=== PATIENT | female | born 1960 | race Caucasian/White ===

== ENCOUNTER → 2016-05-25 | Outpatient (CLI) | payer BC ==
--- NOTE | 2016-05-28 10:39 | MM ---
Reason for exam: screening (asymptomatic). Last mammogram was performed 2 years and 5 months ago. History: Patient is postmenopausal and had first child at age 33. Physical Findings: A clinical breast exam by your physician is recommended on an annual basis and results should be correlated with mammographic findings. MG 3D Screening Mammo W/Cad Bilateral CC and MLO view(s) were taken. Prior study comparison: December 24, 2013, bilateral MG screening mammo w CAD. July 31, 2011, bilateral digital screening mammo w/CAD. The breast tissue is heterogeneously dense. This may lower the sensitivity of mammography. There is no discrete abnormality. ASSESSMENT: Negative, BI-RAD 1 RECOMMENDATION: Routine screening mammogram of both breasts in 1 year.
== END | disposition home or self-care (01) ==
LOC: RADMAMWWP 07:13
PROVIDERS: ATTEND Internal Medicine
DX: Z12.31 Encounter for screening mammogram for malignant neoplasm of breast (principal)
CPT/HCPCS: 77063; G0202

== ENCOUNTER → 2016-07-18 | Outpatient (CLI) | payer BC ==
--- NOTE | 2016-07-18 15:46 | XR ---
EXAMINATION TYPE: XR foot complete RT DATE OF EXAM: 07/18/2016 3:41 PM COMPARISON: NONE HISTORY: Right foot pain TECHNIQUE: 3 views right foot FINDINGS: There is hallux valgus deformity with prominence of the first metatarsophalangeal joint spa ce. No acute fractures are evident. Soft tissues appear normal. IMPRESSION: 1. Hallux valgus deformity first digit
== END | disposition home or self-care (01) ==
LOC: RADXRMAIN 15:27
PROVIDERS: ATTEND Internal Medicine
DX: M20.11 Hallux valgus (acquired), right foot (principal)

== ENCOUNTER → 2016-11-01 | Outpatient (CLI) | payer BC ==
--- NOTE | 2016-11-01 17:19 | XR ---
EXAMINATION TYPE: XR hand complete RT DATE OF EXAM: 11/01/2016 COMPARISON: NONE HISTORY: Cellulitis TECHNIQUE: 3 views FINDINGS: There is a plate fixing the distal radius. There is deformity of the distal ulna. I see no acute fracture nor dislocation. Metacarpals are intact. IMPRESSION: No acute abnormality of the right hand. No sign of osteomyelitis.
== END | disposition home or self-care (01) ==
LOC: RADXRMAIN 16:48
PROVIDERS: ATTEND Internal Medicine
DX: L03.011 Cellulitis of right finger (principal)

== ENCOUNTER → 2017-02-01 | Outpatient (CLI) | payer BC ==
[2017-02-01 17:25] LABS: Anisocytosis Slight; Basophils % (A) 0 %; CH 28.7; CHCM 31.2; Eosinophils # (A) 0.1 k/uL (0-0.7); Eosinophils % (A) 2 %; HCT 38.1 % (34.0-46.0); HDW 2.51; HGB 12.1 gm/dL (11.4-16.0); Hypochromasia Slight; Luc % (Auto) 2; Lymphocytes # (A) 1.5 k/uL (1.0-4.8); Lymphocytes % (A) 22 %; MCH 29.2 pg (25.0-35.0); MCHC 31.7 g/dL (31.0-37.0); MCV 92.3 fL (80.0-100.0); Mean Platelet Volume 7.1; Monocytes # (A) 0.3 k/uL (0-1.0); Monocytes % (A) 4 %; Neutrophils # (A) 4.8 k/uL (1.3-7.7); Neutrophils % (A) 71 %; RBC 4.13 m/uL (3.80-5.40); RDW 17.5 % (11.5-15.5); WBC 6.9 k/uL (3.8-10.6); WBC (Perox) 7.22
[2017-02-01 17:42] LABS: Anion Gap 8 mmol/L; Blood Urea Nitrogen 15 mg/dL (7-17); Carbon Dioxide 30 mmol/L (22-30); Chloride 103 mmol/L (98-107); Glucose 80 mg/dL (74-99); Potassium 3.2 mmol/L (3.5-5.1); Sodium 141 mmol/L (137-145)
[2017-02-01 17:43] LABS: ALT 34 U/L (9-52); AST 25 U/L (14-36); C Reactive Protein <5.0 mg/L (<10.0); Calcium 9.1 mg/dL (8.4-10.2); Non-African American GFR(MDRD) >60 (>60 ml/min/1.73 sqM)
[2017-02-01 19:29] LABS: Erythrocyte Sedimentation Rate 8 mm/hr (0-20)
== END | disposition home or self-care (01) ==
LOC: LABWHC1 17:05
PROVIDERS: ATTEND Internal Medicine Rheumatology
DX: M34.9 Systemic sclerosis, unspecified (principal)
CPT/HCPCS: 36415; 80048; 84450; 84460; 85025; 85652; 86140

== ENCOUNTER → 2017-08-02 | Outpatient (CLI) | payer BC ==
--- NOTE | 2017-08-02 14:57 | US ---
EXAMINATION TYPE: US venous doppler duplex LE DATE OF EXAM: 08/02/2017 12:55 PM COMPARISON: NONE CLINICAL HISTORY: M79.604 Pain right leg, M79.605 Pain left leg. Surgery to lengthen toes on left viky t 06/06/17. Infection/wound 2nd and 4th left toe LOWER EXTREMITY VENOUS INSUFFICIENCY SIDE PERFORMED: bilateral 1) Color flow is present and patency is documented in the following vessels. No DVT or SVT is noted . EIV Common Femoral Vein Deep Femoral Vein Femoral Vein Popliteal Vein Proximal Calf Veins Greater Saph Vein Upper Small Saph Vein 2) There is venous reflux noted at the following venous levels: right EIV, right CFV, right femoral vein upper mid and distal, right small saph vein, right popliteal vein upper mid and distal. Left EI V, left greater saph vein, left CFV, left femoral vein upper mid and distal, left popliteal vein uppe r mid and distal IMPRESSION: Lower extremity venous reflux as described
--- NOTE | 2017-08-06 10:28 | P.ARTDOP ---
Arterial Doppler LOWER EXTREMITY ARTERIAL DOPPLER: DATE OF SERVICE: 08/02/2017 Reason for study: Surgical dehiscence left foot. Doppler waveforms: Multiphasic bilaterally throughout. Pulse volume recording: Normal configuration to ankle level. Digital PPG have poor waveforms. Pressure gradients: None. Ankle-brachial indices: Greater than 1 bilaterally. Toe pressures: [] on the right, [] on the left Impression: Normal study at the ankle and above. Digital waveforms poor which could be a sign of vasospastic phenomenon or less likely very distal disease. Clinical correlation recommended.
== END | disposition home or self-care (01) ==
LOC: RADUSWWP 11:50
PROVIDERS: ATTEND Family Medicine
DX: I87.2 Venous insufficiency (chronic) (peripheral) (principal)
CPT/HCPCS: 93923; 93970

== ENCOUNTER → 2017-10-03 | Outpatient (CLI) | payer BC ==
--- NOTE | 2017-10-03 13:27 | BD ---
EXAMINATION TYPE: Axial Bone Density DATE OF EXAM: 10/03/2017 COMPARISON: 09/19/2010 CLINICAL HISTORY: Postmenopausal female. Osteoporosis screening. Height: 64 IN Weight: 120 LBS FRAX RISK QUESTIONS: Secondary Osteoporosis: 3. Menopause before 45: YES AGE 41 RISK FACTORS HISTORY OF: History of Wrist Fracture: RT WRIST When: AGE 27 Surgery to Wrist (right): YES RT When: AGE 27 Active: YES Diet low in dairy products/other sources of calcium: YES Postmenopausal woman: AGE 41 MEDICATIONS: Additional Medications: VIT D, METHOTREXATE ONCE PER WEEK, BLOOD PRESSURE MEDS, FOLIC ACID, OMEPRAZOL E, EXAM MEASUREMENTS: Bone mineral densitometry was performed using the [employer] System. Bone mineral density as measured about the Lumbar spine is: ----- L1-L4(G/cm2): 1.014 T Score Values are as follows: ----- L2: -1.7 ----- L3: -1.3 ----- L4: -1.6 ----- L1-L4: -1.4 Bone mineral density has: Decreased -3.3% since study of: 09/19/2010 Bone mineral density about the R hip (g/cm2): 0.769 Bone mineral density about the L hip (g/cm2): 0.783 T Score values are as follows: -----R Neck: -1.9 -----L Neck: -1.8 -----R Total: -1.4 -----L Total: -1.4 Bone mineral density has: Decreased -1.7% since study of: 09/19/2010 IMPRESSION: Osteopenia (T Score between -2.5 and -1). There is slightly increased risk of fracture and the patient may be considered for treatment. Re-Screen 2-5 years. NOTE: T-SCORE=SD OF THE YOUNG ADULT MEAN.
== END | disposition home or self-care (01) ==
LOC: RADBDWWP 07:22
PROVIDERS: ATTEND Internal Medicine
DX: M85.80 Other specified disorders of bone density and structure, unspecified site (principal)
CPT/HCPCS: 77080

== ENCOUNTER → 2017-11-18 | Outpatient (CLI) | payer BC ==
--- NOTE | 2017-11-19 07:38 | MM ---
Reason for exam: screening (asymptomatic). Last mammogram was performed 1 year and 6 months ago. History: Patient is postmenopausal and had first child at age 33. Physical Findings: A clinical breast exam by your physician is recommended on an annual basis and results should be correlated with mammographic findings. MG 3D Screening Mammo W/Cad Bilateral CC and MLO view(s) were taken. Prior study comparison: May 25, 2016, bilateral MG 3d screening mammo w/cad. December 24, 2013, bilateral MG screening mammo w CAD. The breast tissue is heterogeneously dense. This may lower the sensitivity of mammography. No significant changes when compared with prior studies. ASSESSMENT: Negative, BI-RAD 1 RECOMMENDATION: Routine screening mammogram of both breasts in 1 year.
== END | disposition home or self-care (01) ==
LOC: RADMAMWWP 06:59
PROVIDERS: ATTEND Obstetrics & Gynecology
DX: Z12.31 Encounter for screening mammogram for malignant neoplasm of breast (principal)
CPT/HCPCS: 77063; 77067

== ENCOUNTER 2018-03-17 16:41 | Emergency (ER) | payer BC ==
[2018-03-17 16:47] VITALS: RESP 16
--- NOTE | 2018-03-17 17:47 | ED ---
General Adult HPI - General Chief complaint: Back Pain/Injury Stated complaint: Back pain hurts to breathe Time Seen by Provider: 03/17/18 17:09 Source: patient, RN notes reviewed Mode of arrival: ambulatory Limitations: no limitations - History of Present Illness Initial comments: Patient 57-year-old female presented to the emergency room today with chief complaint of right-sided mid back pain. Patient does admit that earlier today she sneezed and then had a coughing bout. She states she's not been having pain in the mid side of the right back. She states that she had similar symptoms a week ago. She states she was able to use a congested Tylenol and massage the area and the symptoms improved. States went away over the last week. She states that her symptoms came back when she was at work today approximately 3 hours ago. States she's tried massage the area back out but has not had much relief. She states she sits still that she is pain-free. She does not that the pain is worse with certain movements also gives an example if she takes deep breath or coughs. Patient denies any other complaints or symptoms. Patient denies any recent fever, chills, shortness of breath, chest pain, abdominal pain, nausea or vomiting, numbness or tingling, dysuria or hematuria, constipation or diarrhea, headaches or visual changes, or any other complaints. - Related Data Home Medications Medication Instructions Recorded Confirmed Methotrexate Sodium (Pf) 0.8 ml SQ FR 08/22/14 03/17/18 [Methotrexate 25 mg/ml Vial] NIFEdipine XL [Procardia Xl] 90 mg PO DAILY 08/22/14 03/17/18 Omeprazole [PriLOSEC] 40 mg PO BID 08/22/14 03/17/18 Sildenafil Citrate [Sildenafil] 20 mg PO BID 03/17/18 03/17/18 Previous Rx's Medication Instructions Recorded Azithromycin [Zithromax Z-pack] 0 mg PO DIRECTED #6 tab 03/17/18 Allergies Allergy/AdvReac Type Severity Reaction Status Date / Time No Known Allergies Allergy Verified 03/17/18 17:51 Review of Systems ROS Statement: Those systems with pertinent positive or pertinent negative responses have been documented in the HPI. ROS Other: All systems not noted in ROS Statement are negative. Past Medical History Past Medical History: GERD/Reflux, Hypertension, Skin Disorder Additional Past Medical History / Comment(s): Scleroderma, wound on left foot toes, raynaud's History of Any Multi-Drug Resistant Organisms: MRSA Date of last positivie culture/infection: 2009 MDRO Source:: scalp Past Surgical History: Appendectomy, Bowel Resection, Cholecystectomy, Orthopedic Surgery Additional Past Surgical History / Comment(s): bowel resection DIVERTICULITIS, left foot surgery 05/2017, rt wrist ORIF Past Anesthesia/Blood Transfusion Reactions: Motion Sickness, Postoperative Nausea & Vomiting (PONV) Past Psychological History: No Psychological Hx Reported Smoking Status: Never smoker Past Alcohol Use History: None Reported Past Drug Use History: None Reported - Past Family History Mother Family Medical History: Cancer Father Family Medical History: No Reported History General Exam - General Exam Comments Initial Comments: General: The patient is awake and alert, in no distress, and does not appear acutely ill. Eye: Pupils are equal, round and reactive to light. Extra-ocular movements are intact. No nystagmus. There is normal conjunctiva bilaterally. No signs of icterus. Ears, nose, mouth and throat: There are moist mucous membranes and no oral lesions. Neck: The neck is supple, there is no tenderness or JVD. Cardiovascular: There is a regular rate and rhythm. No murmur, rub or gallop is appreciated. Respiratory: Lungs are clear to auscultation, respirations are non-labored, breath sounds are equal. No wheezes, stridor, rales, or rhonchi. Musculoskeletal: Normal ROM. No tenderness in the cervical, thoracic or lumbar spine. Mildly tender right mid thoracic rib area. Sensation intact. Strength 5/5. Pulses equal bilaterally 2+. Neurological: A&O x 3. CN II-XII intact, There are no obvious motor or sensory deficits. Coordination appears grossly intact. Speech is normal. Skin: Skin is warm and dry and no rashes or lesions are noted. Psychiatric: Cooperative, appropriate mood & affect, normal judgment. Limitations: no limitations Course Vital Signs 03/17/18 16:44 Temperature 98.3 F Pulse Rate 75 Respiratory 16 Rate Blood Pressure 159/98 O2 Sat by Pulse 100 Oximetry EKG Findings - EKG Comments: EKG Findings:: EKG performed at 1726: Shows normal sinus rhythm at 68 bpm. NC interval 126. QRS 86. QT/QTc is 6/421. No acute changes. Medical Decision Making - Medical Decision Making Case discussed in detail with attending physician Dr. Martin. Patient reexamined at this time shows no signs of distress resting comfortably. Patient does admit that earlier today after sneezing and then coughing bouts and began having some right-sided back pain. She states feels similar to pain that she had last week that she was able to use a soaking and massage the area which made her feel better. She states that when she is sitting still she is pain- free but with certain movements she does experience pain. Patient's x-ray reviewed and shows basilar infiltrate. Patient's EKG shows no acute change. At this time patient feels comfortable being discharged home. She will be started on antibiotics given a shot of Rocephin here in the emergency room and continued on azithromycin. She is advised follow family doctor over the next 2 days return here to emergency room for any symptoms increase worsen. Disposition Clinical Impression: Community acquired pneumonia, Muscle strain Disposition: HOME SELF-CARE Condition: Good Instructions: Community Acquired Pneumonia (ED) Additional Instructions: Please use medication as discussed. Please follow-up with family doctor in the next 2 days of symptoms have not improved. Please return to emergency room if the symptoms increase or worsen or for any other concerns. Prescriptions: Azithromycin [Zithromax Z-pack] 0 mg PO DIRECTED #6 tab Is patient prescribed a controlled substance at d/c from ED?: No Referrals: Devi Malin MD [Primary Care Provider] - 1-2 days Time of Disposition: 18:37
--- NOTE | 2018-03-17 17:57 | XR ---
EXAMINATION TYPE: XR chest 2V DATE OF EXAM: 03/17/2018 COMPARISON: 09/19/2016 HISTORY: Cough TECHNIQUE: Frontal and lateral views of the chest are obtained. FINDINGS: There is some mild interstitial infiltrate at the lung bases. The other lung strickland are cl ear. There is no heart failure. Heart size is normal. There is slight blunting of the costophrenic an gles. IMPRESSION: Small amount of pleural fluid and pleural reaction with mild basilar pulmonary infiltrat es. This appears increased compared to old exam. Normal heart..
[2018-03-17] MEDS ORDERED: cefTRIAXone 1,000 MG VIAL IM STA (18:36)
[2018-03-17 19:01] VITALS: BP 145/93; PULSE 66; TEMP 98.4
== END 2018-03-17 19:07 | disposition home or self-care (01) ==
LOC: EC 16:41
DX: S39.012A Strain of muscle, fascia and tendon of lower back, initial encounter (principal); J18.9 Pneumonia, unspecified organism; K21.9 Gastro-esophageal reflux disease without esophagitis; I10 Essential (primary) hypertension; Z86.14 Personal history of Methicillin resistant Staphylococcus aureus infection; Z79.899 Other long term (current) drug therapy
CPT/HCPCS: 93005; 71046; 99283; 96372; J0696

== ENCOUNTER → 2018-03-18 | Outpatient (CLI) | payer BC ==
--- NOTE | 2018-03-19 11:08 | ECHOF ---
Referral Reason:M34.9 Systemic sclerosis MEASUREMENTS -------- HEIGHT: 162.6 cm WEIGHT: 55.3 kg BP: RVIDd: 3.0 cm (< 3.3) IVSd: 1.1 cm (0.6 - 1.1) LVIDd: 3.7 cm (3.9 - 5.3) LVPWd: 1.2 cm (0.6 - 1.1) IVSs: 1.4 cm LVIDs: 2.5 cm LVPWs: 1.3 cm LAESV Index (A-L): 33.92 ml/m Ao Diam: 3.0 cm (2.0 - 3.7) AV Cusp: 2.0 cm (1.5 - 2.6) LA Diam: 3.0 cm (2.7 - 3.8) MV EXCURSION: 16.356 mm (> 18.000) MV EF SLOPE: 75 mm/s (70 - 150) EPSS: 0.2 cm MV E Sami: 1.04 m/s MV DecT: 277 ms MV A Sami: 0.86 m/s MV E/A Ratio: 1.20 RAP: 5.00 mmHg RVSP: 26.42 mmHg FINDINGS -------- Sinus rhythm. This was a technically good study. The left ventricular size is normal. There is borderline concentric left ventricular hypertrophy. Overall left ventricular systolic function is normal with, an EF between 55 - 60 %. The right ventricle is normal in size and function. LA is midly dilated 29-33ml/m2. RA appears enlarged. Aortic valve is trileaflet and is mildly thickened. Trace to mild aortic regurgitation. There is no evidence of aortic stenosis. The mitral valve leaflets are mildly thickened. There is trace to mild mitral regurgitation. Trace tricuspid regurgitation present. Right ventricular systolic pressure is normal at < 35 mmHg. There is no evidence of pulmonary hypertension. There is no pulmonic regurgitation present. The aortic root size is normal. Normal inferior vena cava with normal inspiratory collapse consistent with estimated right atrial pre ssure of 5 mmHg. There is no pericardial effusion. CONCLUSIONS -------- 1. Sinus rhythm. 2. This was a technically good study. 3. The left ventricular size is normal. 4. There is borderline concentric left ventricular hypertrophy. 5. Overall left ventricular systolic function is normal with, an EF between 55 - 60 %. 6. LA is midly dilated 29-33ml/m2. 7. RA appears enlarged. 8. Aortic valve is trileaflet and is mildly thickened. 9. Trace to mild aortic regurgitation. 10. The mitral valve leaflets are mildly thickened. 11. There is trace to mild mitral regurgitation. 12. Trace tricuspid regurgitation present. 13. Right ventricular systolic pressure is normal at < 35 mmHg. 14. There is no evidence of pulmonary hypertension. 15. There is no pulmonic regurgitation present. 16. The aortic root size is normal. 17. There is no pericardial effusion. HAND FLESHER: Sal Jim RDCS
== END | disposition home or self-care (01) ==
LOC: RADECHMAIN 16:25
PROVIDERS: ATTEND Internal Medicine Critical Care Medicine
DX: I08.0 Rheumatic disorders of both mitral and aortic valves (principal)
CPT/HCPCS: 93306

== ENCOUNTER → 2018-04-17 | Outpatient (CLI) | payer BC ==
--- NOTE | 2018-04-18 07:08 | XR ---
EXAMINATION TYPE: XR shoulder complete RT DATE OF EXAM: 04/17/2018 CLINICAL HISTORY: Right shoulder pain with no known injury TECHNIQUE: Three views of the right shoulder are obtained. COMPARISON: None. FINDINGS: There is no acute fracture/dislocation evident in the right shoulder. The acromioclavicul ar and glenohumeral joint spaces appear within normal limits. The visualized ribs are intact and unr emarkable. IMPRESSION: There is no acute fracture or dislocation in the right shoulder. If there is persistent pain MRI could evaluate the rotator cuff and labrum.
== END | disposition home or self-care (01) ==
LOC: RADXRMAIN 17:04
PROVIDERS: ATTEND Internal Medicine
DX: M25.511 Pain in right shoulder (principal)

== ENCOUNTER → 2018-09-18 | Outpatient (CLI) | payer BC ==
[2018-09-18 10:23] LABS: Anisocytosis Slight; Basophils % (A) 0 %; Eosinophils # (A) 0.1 k/uL (0-0.7); Eosinophils % (A) 1 %; HCT 39.8 % (34.0-46.0); HGB 12.4 gm/dL (11.4-16.0); Hypochromasia Slight; Lymphocytes # (A) 0.7 k/uL (1.0-4.8); Lymphocytes % (A) 9 %; MCH 27.9 pg (25.0-35.0); MCHC 31.1 g/dL (31.0-37.0); Monocytes # (A) 0.3 k/uL (0-1.0); Monocytes % (A) 4 %; Neutrophils % (A) 84 %; Platelet Count 265 k/uL (150-450); RBC 4.43 m/uL (3.80-5.40); RDW 16.7 % (11.5-15.5); WBC 7.1 k/uL (3.8-10.6)
[2018-09-18 10:24] LABS: MCV 89.8 fL (80.0-100.0)
[2018-09-18 10:27] LABS: Appearance,Urine Clear (Clear); Bilirubin,Urine Negative (Negative); Blood,Urine Negative (Negative); Color,Urine Yellow; Glucose,Urine (UA) Negative (Negative); Ketones,Urine Negative (Negative); Leukocyte Esterase,Urine Negative (Negative); Nitrite,Urine Negative (Negative); Protein,Urine Trace (Negative); Specific Gravity,Urine 1.031 (1.001-1.035); Urobilinogen,Urine <2.0 mg/dL (<2.0)
[2018-09-18 12:55] LABS: Erythrocyte Sedimentation Rate 10 mm/hr (0-20)
[2018-09-18 17:53] LABS: ALT 11 U/L (8-44); AST 16 U/L (13-35); Alkaline Phosphatase 66 U/L (41-126); C Reactive Protein <0.4 mg/dL (0.0-0.8); Calcium 9.1 mg/dL (8.7-10.3); Carbon Dioxide 28.6 mmol/L (21.6-31.8); Chloride 107 mmol/L (96-109); Cholesterol 175 mg/dL (0-200); Creatine Kinase 37 U/L (26-186); Globulin 2.1 g/dL (1.6-3.3); Glucose 76 mg/dL (70-110); Magnesium 1.4 mg/dL (1.5-2.4); Potassium 3.8 mmol/L (3.5-5.5); Sodium 141 mmol/L (135-145); Total Bilirubin 0.4 mg/dL (0.3-1.2); Total Protein 6.1 g/dL (6.2-8.2); Triglycerides <50.0 mg/dL (0.0-149.0); VLDL Calculation 9.98 mg/dL (5.00-40.00)
== END | disposition home or self-care (01) ==
LOC: LABWHC1 08:51
PROVIDERS: ATTEND Internal Medicine
DX: I73.00 Raynaud's syndrome without gangrene (principal); I10 Essential (primary) hypertension; M81.0 Age-related osteoporosis without current pathological fracture
CPT/HCPCS: 36415; 80053; 80061; 81003; 82306; 82550; 83036; 83735; 84439; 84443; 84550; 85025; 85652; 86140

== ENCOUNTER → 2018-11-19 | Outpatient (CLI) | payer BC ==
--- NOTE | 2018-11-20 10:44 | MM ---
Reason for exam: screening (asymptomatic). Last mammogram was performed 1 year ago. History: Patient is postmenopausal and had first child at age 33. Physical Findings: A clinical breast exam by your physician is recommended on an annual basis and results should be correlated with mammographic findings. MG 3D Screening Mammo W/Cad Bilateral CC and MLO view(s) were taken. Prior study comparison: November 18, 2017, bilateral MG 3d screening mammo w/cad. May 25, 2016, bilateral MG 3d screening mammo w/cad. The breast tissue is heterogeneously dense. This may lower the sensitivity of mammography. No suspicious abnormality. No significant changes when compared with prior studies. ASSESSMENT: Negative, BI-RAD 1 RECOMMENDATION: Routine screening mammogram of both breasts in 1 year.
== END | disposition home or self-care (01) ==
LOC: RADMAMWWP 07:20
PROVIDERS: ATTEND Internal Medicine
DX: Z12.31 Encounter for screening mammogram for malignant neoplasm of breast (principal)
CPT/HCPCS: 77063; 77067

== ENCOUNTER → 2018-11-24 | Outpatient (CLI) | payer BC ==
--- NOTE | 2018-11-25 06:50 | CT ---
EXAMINATION TYPE: CT chest wo con DATE OF EXAM: 11/24/2018 COMPARISON: CT chest December 07, 2015. HISTORY: Systemic sclerosis CT DLP: 328 mGycm. Automated Exposure Control for Dose Reduction was Utilized. TECHNIQUE: CT scan of the thorax is performed without IV contrast. FINDINGS: LUNGS: There are stable peripheral reticulation and fibrosis most prominent in the peripherally and i n the lower lungs with some honeycomb fibrosis just above the diaphragms redemonstrated and bleb form ation. No pleural effusion or pneumothorax is seen. No suspicious nodules or masses. MEDIASTINUM: Lack of IV contrast is noted to limit evaluation for mediastinal and especially hilar ad enopathy. There are no definitive greater than 1 cm hilar or mediastinal lymph nodes. There is stable small to borderline moderate size pericardial effusion. No cardiomegaly. Moderate coronary artery ca lcification is redemonstrated, noted marker. Underlying coronary artery disease. Ascending aorta kalia ures up to 3.4 cm diameter image 28. OTHER: Cholecystectomy clips are redemonstrated. IMPRESSION: Stable peripheral lower lung fibrotic changes favoring NSIP in patient with history of sc leroderma, no new or acute pulmonary process is evident.
== END | disposition home or self-care (01) ==
LOC: RADCTMAIN 16:02
PROVIDERS: ATTEND Internal Medicine Critical Care Medicine
DX: J84.10 Pulmonary fibrosis, unspecified (principal); J84.89 Other specified interstitial pulmonary diseases; M34.9 Systemic sclerosis, unspecified; Z87.39 Personal history of other diseases of the musculoskeletal system and connective tissue
CPT/HCPCS: 71250

== ENCOUNTER → 2018-11-28 | Outpatient (CLI) | payer BC ==
--- NOTE | 2018-11-29 18:04 | ECHOF ---
Referral Reason:M34.9 systemic sclerosis MEASUREMENTS -------- HEIGHT: 162.6 cm WEIGHT: 55.3 kg BP: RVIDd: 2.7 cm (< 3.3) IVSd: 0.8 cm (0.6 - 1.1) LVIDd: 3.2 cm (3.9 - 5.3) LVPWd: 1.0 cm (0.6 - 1.1) IVSs: 1.3 cm LVIDs: 1.8 cm LVPWs: 1.5 cm LAESV Index (A-L): 21.84 ml/m Ao Diam: 2.9 cm (2.0 - 3.7) AV Cusp: 2.2 cm (1.5 - 2.6) LA Diam: 2.7 cm (2.7 - 3.8) MV EXCURSION: 20.347 mm (> 18.000) MV EF SLOPE: 75 mm/s (70 - 150) EPSS: 0.4 cm MV E Sami: 0.81 m/s MV DecT: 255 ms MV A Sami: 0.86 m/s MV E/A Ratio: 0.94 AR PHT: 368 ms RAP: 5.00 mmHg RVSP: 23.28 mmHg FINDINGS -------- Sinus rhythm. This was a technically good study. The left ventricular size is normal. Left ventricular wall thickness is normal. Overall left vent ricular systolic function is normal with, an EF between 55 - 60 %. The right ventricle is normal in size. The left atrial size is normal. Normal LA size by volume 22+/-6 ml/m2. The right atrial size is normal. Interatrial and interventricular septum intact. The aortic valve is trileaflet and appears structurally normal. The mitral valve is normal. There is trace mitral regurgitation. The tricuspid valve appears structurally normal. Trace tricuspid regurgitation present. Right luis tricular systolic pressure is normal at < 35 mmHg. There is no pulmonic regurgitation present. The aortic root size is normal. Normal inferior vena cava with normal inspiratory collapse consistent with estimated right atrial pre ssure of 5 mmHg. There is a small, generalized pericardial effusion present. CONCLUSIONS -------- 1. Sinus rhythm. 2. This was a technically good study. 3. The left ventricular size is normal. 4. Left ventricular wall thickness is normal. 5. Overall left ventricular systolic function is normal with, an EF between 55 - 60 %. 6. The right ventricle is normal in size. 7. The left atrial size is normal. 8. Normal LA size by volume 22+/-6 ml/m2. 9. The right atrial size is normal. 10. Interatrial and interventricular septum intact. 11. The aortic valve is trileaflet and appears structurally normal. 12. The mitral valve is normal. 13. There is trace mitral regurgitation. 14. The tricuspid valve appears structurally normal. 15. Trace tricuspid regurgitation present. 16. Right ventricular systolic pressure is normal at < 35 mmHg. 17. There is no pulmonic regurgitation present. 18. The aortic root size is normal. 19. Normal inferior vena cava with normal inspiratory collapse consistent with estimated right atrial pressure of 5 mmHg. 20. There is a small, generalized pericardial effusion present. CHIEF WELLNESS OFFICER: Brittnee Hutton RDCS
== END | disposition home or self-care (01) ==
LOC: RADECHMAIN 13:54
PROVIDERS: ATTEND Internal Medicine Critical Care Medicine
DX: I31.3 Pericardial effusion (noninflammatory) (principal); M34.9 Systemic sclerosis, unspecified
CPT/HCPCS: 93306

== ENCOUNTER 2020-01-14 15:32 | Emergency (ER) | payer BC, OTHER ==
[2020-01-14 15:38] VITALS: BP 164/78; PULSE 78; RESP 18; TEMP 97.7
--- NOTE | 2020-01-14 15:50 | ED ---
Lower Extremity Injury HPI - General Source: patient Mode of arrival: ambulatory Limitations: no limitations <Ernesto Viera - Last Filed: 01/14/20 16:33> <Sheba Christina - Last Filed: 01/15/20 15:40> - General Chief Complaint: Extremity Injury, Lower Stated Complaint: [facility] - R Foot Injury Time Seen by Provider: 01/14/20 15:40 - History of Present Illness Initial Comments: Patient is 59 of female presenting to the emergency department with a chief complaint of foot pain. Patient states she attempted to kick the crowbar that was holding the door propped up. Patient reports it caused her to flex the foot. She reports there was some initial pain which is has resolved. She does report previous surgery on the right foot and has hardware in it. She states there is no numbness and tingling. Denies any regions or ecchymosis or swelling. Denies taking medication to alleviate the symptoms. States this o ccurred about one hour prior to arrival. Denies any alleviating or aggravating factors. (Ernesto Viera) - Related Data Home Medications Medication Instructions Recorded Confirmed Methotrexate Sodium (Pf) 0.8 ml SQ FR 08/22/14 03/17/18 [Methotrexate 25 mg/ml Vial] NIFEdipine XL [Procardia Xl] 90 mg PO DAILY 08/22/14 03/17/18 Omeprazole [PriLOSEC] 40 mg PO BID 08/22/14 03/17/18 Sildenafil Citrate [Sildenafil] 20 mg PO BID 03/17/18 03/17/18 Previous Rx's Medication Instructions Recorded Azithromycin [Zithromax Z-pack] 0 mg PO DIRECTED #6 tab 03/17/18 Allergies Allergy/AdvReac Type Severity Reaction Status Date / Time No Known Allergies Allergy Verified 01/14/20 15:38 Review of Systems ROS Other: All systems not noted in ROS Statement are negative. <Ernesto Viera - Last Filed: 01/14/20 16:33> ROS Other: All systems not noted in ROS Statement are negative. <Sheba Christina - Last Filed: 01/15/20 15:40> ROS Statement: Those systems with pertinent positive or pertinent negative responses have been documented in the HPI. Past Medical History Past Medical History: GERD/Reflux, Hypertension, Skin Disorder Additional Past Medical History / Comment(s): Scleroderma, wound on left foot toes, raynaud's History of Any Multi-Drug Resistant Organisms: MRSA Date of last positivie culture/infection: 2009 MDRO Source:: scalp Past Surgical History: Appendectomy, Bowel Resection, Cholecystectomy, Orthopedic Surgery Additional Past Surgical History / Comment(s): bowel resection DIVERTICULITIS, left foot surgery 05/2017, rt wrist ORIF Past Anesthesia/Blood Transfusion Reactions: Motion Sickness, Postoperative Nausea & Vomiting (PONV) Past Psychological History: No Psychological Hx Reported Smoking Status: Never smoker Past Alcohol Use History: None Reported Past Drug Use History: None Reported - Past Family History Mother Family Medical History: Cancer Father Family Medical History: No Reported History <Ernesto Viera - Last Filed: 01/14/20 16:33> General Exam Limitations: no limitations General appearance: alert, in no apparent distress Head exam: Present: atraumatic, normocephalic, normal inspection Eye exam: Present: normal appearance, PERRL, EOMI Pupils: Present: normal accommodation ENT exam: Present: normal exam, normal oropharynx, mucous membranes moist Neck exam: Present: normal inspection, full ROM. Absent: tenderness, meningismus Respiratory exam: Present: normal lung sounds bilaterally. Absent: respiratory distress, wheezes, rales Cardiovascular Exam: Present: regular rate, normal rhythm, normal heart sounds Extremities exam: Present: normal inspection, full ROM, tenderness (Minimal mid foot tenderness), normal capillary refill, other (+2 dorsalis pedis and posterior tibial bilaterally.) Back exam: Present: normal inspection, full ROM. Absent: tenderness, CVA tenderness (R), CVA tenderness (L) Neurological exam: Present: alert, oriented X3 Psychiatric exam: Present: normal affect, normal mood Skin exam: Present: warm, dry, intact, normal color <Ernesto Viera - Last Filed: 01/14/20 16:33> Course Vital Signs 01/14/20 15:34 Temperature 97.7 F Pulse Rate 78 Respiratory 18 Rate Blood Pressure 164/78 O2 Sat by Pulse 100 Oximetry Medical Decision Making <Sheba Christina - Last Filed: 01/15/20 15:40> - Medical Decision Making I was available for consultation in the emergency department. The history and physical exam were done by the midlevel provider. I was consulted for this patients care. I reviewed the case with the midlevel provider and based on their presentation of the patient, I agree with the assessment, medical decision making and plan of care as documented. Chart was dictated using [employer] dictation software. Attempts were made to correct any dictation errors however some typographical errors may persist. Patient was seen during a national state of emergency due to the Covid-19 pandemic. (Sheba Christina) Disposition Is patient prescribed a controlled substance at d/c from ED?: No Time of Disposition: 16:33 <Ernesto Viera - Last Filed: 01/14/20 16:33> <Sheba Christina - Last Filed: 01/15/20 15:40> Clinical Impression: Right foot injury Disposition: HOME SELF-CARE Condition: Stable Instructions (If sedation given, give patient instructions): Foot Contusion (ED) Additional Instructions: Follow with the primary care physician. Return to emergency department if symptoms worsen. Alternate between Tylenol and Motrin for pain control. Apply ice compress to keep the foot elevated. Referrals: Devi Malin MD [Primary Care Provider] - 1-2 days
--- NOTE | 2020-01-14 16:07 | XR ---
EXAMINATION TYPE: XR foot complete RT DATE OF EXAM: 01/14/2020 CLINICAL HISTORY: pain TECHNIQUE: Frontal, lateral and oblique images of the right foot are obtained. COMPARISON: None. FINDINGS: There is no acute fracture/dislocation evident. Postoperative changes involving the first metatarsal phalangeal joint. The overlying soft tissue appears unremarkable. IMPRESSION: There is no acute fracture or dislocation. ICD 10 NO FRACTURE, INITIAL EVALUATION
== END 2020-01-14 16:37 | disposition home or self-care (01) ==
LOC: EC 15:32
DX: S99.921A Unspecified injury of right foot, initial encounter (principal); K21.9 Gastro-esophageal reflux disease without esophagitis; I10 Essential (primary) hypertension; Z79.899 Other long term (current) drug therapy; Z87.39 Personal history of other diseases of the musculoskeletal system and connective tissue; Z98.890 Other specified postprocedural states; Z86.14 Personal history of Methicillin resistant Staphylococcus aureus infection; W22.8XXA Striking against or struck by other objects, initial encounter; Y93.89 Activity, other specified
CPT/HCPCS: 99283

== ENCOUNTER → 2020-05-11 | Outpatient (CLI) | payer BC ==
--- NOTE | 2020-05-16 11:14 | MM ---
Reason for exam: screening (asymptomatic). Last mammogram was performed 1 year and 6 months ago. History: Patient is postmenopausal and had first child at age 33. Physical Findings: A clinical breast exam by your physician is recommended on an annual basis and results should be correlated with mammographic findings. MG 3D Screening Mammo W/Cad Bilateral CC and MLO view(s) were taken. Prior study comparison: November 19, 2018, bilateral MG 3d screening mammo w/cad. November 18, 2017, bilateral MG 3d screening mammo w/cad. The breast tissue is heterogeneously dense. This may lower the sensitivity of mammography. No significant changes when compared with prior studies. ASSESSMENT: Negative, BI-RAD 1 RECOMMENDATION: Routine screening mammogram of both breasts in 1 year.
== END | disposition home or self-care (01) ==
LOC: RADMAMWWP 09:54
PROVIDERS: ATTEND Obstetrics & Gynecology
DX: Z12.31 Encounter for screening mammogram for malignant neoplasm of breast (principal)
CPT/HCPCS: 77063; 77067

== ENCOUNTER → 2020-05-12 | Outpatient (CLI) | payer BC ==
[2020-05-12 08:15] LABS: Basophils % (A) 1 %; Eosinophils # (A) 0.2 k/uL (0-0.7); Eosinophils % (A) 2 %; HCT 40.9 % (34.0-46.0); HGB 13.5 gm/dL (11.4-16.0); Lymphocytes # (A) 1.3 k/uL (1.0-4.8); Lymphocytes % (A) 18 %; MCH 29.5 pg (25.0-35.0); MCV 89.6 fL (80.0-100.0); Mean Platelet Volume 6.9; Monocytes # (A) 0.4 k/uL (0-1.0); Monocytes % (A) 6 %; Neutrophils % (A) 72 %; Platelet Count 276 k/uL (150-450); RBC 4.56 m/uL (3.80-5.40); RDW 14.9 % (11.5-15.5)
[2020-05-12 09:51] LABS: Erythrocyte Sedimentation Rate 8 mm/hr (0-20)
[2020-05-12 18:30] LABS: ALT 12 U/L (8-44); AST 18 U/L (13-35); African American GFR (CKD) 108.4 (60.0-200.0); BUN/Creat Ratio 22.86 Ratio (12.00-20.00); C Reactive Protein <0.4 mg/dL (0.0-0.8); Calcium 9.6 mg/dL (8.7-10.3); Carbon Dioxide 25.9 mmol/L (21.6-31.8); Chloride 106 mmol/L (96-109); Glucose 88 mg/dL (70-110); Non-African American GFR(CKD) 93.5 (60.0-200.0); Potassium 4.3 mmol/L (3.5-5.5); Sodium 140 mmol/L (135-145)
== END | disposition home or self-care (01) ==
LOC: LABWHC1 07:11
PROVIDERS: ATTEND Internal Medicine Rheumatology
DX: Z51.81 Encounter for therapeutic drug level monitoring (principal); Z79.899 Other long term (current) drug therapy
CPT/HCPCS: 36415; 80048; 84450; 84460; 85025; 85652; 86140

== ENCOUNTER → 2020-10-18 | Outpatient (CLI) | payer BC ==
--- NOTE | 2020-10-19 10:34 | CT ---
EXAMINATION TYPE: CT chest wo con DATE OF EXAM: 10/18/2020 COMPARISON: 11/24/2018 HISTORY: f/u sclerosis CT DLP: 239.4 mGycm, Automated exposure control for dose reduction was used. CONTRAST: None TECHNIQUE: Axial images were obtained at 1 mm thick sections at 10 mm intervals. This will limit po rtions of the examination which may not be visualized within the [id number]. Images were obtained in the prone and supine views. FINDINGS: Portion of the thyroid visualized is normal. Minimal infiltrate is in the periphery of the lung strickland. No significantly enlarged nodules are iden tified. Pulmonary fibrosis is present at the lung bases. Some bronchiectasis appears to be present at the lung bases No enlarged mediastinal or hilar adenopathy is evident. The ascending aorta diameter at the level o f the main pulmonary artery is 3.9 cm. The main pulmonary artery diameter at the bifurcation is 2.4 cm. Mild coronary artery calcification is present. Minimal pericardial effusion is present. Limited CT sections are obtained through the upper abdomen. Abdomen is essentially unremarkable. IMPRESSIONS: 1. Minimal progression of pulmonary fibrosis. 2. Small pericardial effusion. 3. No significant enlarged nodules or lymph nodes.
== END | disposition home or self-care (01) ==
LOC: RADCTMAIN 16:43
PROVIDERS: ATTEND Internal Medicine
DX: J84.10 Pulmonary fibrosis, unspecified (principal); I31.3 Pericardial effusion (noninflammatory)
CPT/HCPCS: 71250

== ENCOUNTER → 2021-09-14 | Outpatient (CLI) | payer BC ==
--- NOTE | 2021-09-14 10:42 | XR ---
EXAMINATION TYPE: XR hand complete LT DATE OF EXAM: 09/14/2021 CLINICAL HISTORY: Pressure ulcer left third finger TECHNIQUE: Frontal, lateral and oblique images of the left hand are obtained. COMPARISON: None. FINDINGS: Osseous structures are demineralized. There is soft tissue defect consistent with ulceratio n injury to the distal aspect of the third distal phalanx. This appears to extend to the bony surface without cortical destruction or suspicious periosteal reaction. There is well-corticated truncated a ppearance to the distal aspect of the distal phalanx in the second and fifth fingers. Moderate narrow ing throughout the PIP and DIP joints of the phalanges. Mild to moderate diffuse soft tissue swelling in the third finger is noted. No acute displaced fracture. IMPRESSION: As above. Significant soft tissue wound distal aspect third distal phalanx without convin cing radiographic evidence for acute osteomyelitis currently. However extension to level of the bony cortex is extremely concerning. The presence of old bony destruction in the distal aspect of other fi ngers raises concern for underlying significant small vessel peripheral arterial disease or small ves ryley vasculitis. Correlate clinically and follow-up advised.
== END | disposition home or self-care (01) ==
LOC: RADXRMAIN 10:00
PROVIDERS: ATTEND Family Medicine
DX: M89.8X4 Other specified disorders of bone, hand (principal); L98.499 Non-pressure chronic ulcer of skin of other sites with unspecified severity

== ENCOUNTER → 2022-01-08 | Outpatient (CLI) | payer BC ==
--- NOTE | 2022-01-08 13:35 | CA ---
Transthoracic Echo Report Name: Kristen Kim Age: 61 Gender: F : 1960 Exam Date: 01/08/2022 08:43 Exam Location: [facility] Ht (in): 65 Wt (lb): 110 Ordering Physician: Servando Davis MD Attending/Referring Phys: Abiola Mtz [facility] Operations And Maintenance Manager Fariha Osman RDCS Procedure CPT: Indications: M34.9 SCLEROSIS Cardiac Hx: Technical Quality: Good Contrast 1: N/A Total Dose (mL): Contrast 2: Total Dose (mL): MEASUREMENTS (Male / Female) Normal Values 2D ECHO LV Diastolic Diameter PLAX 4.0 cm 4.2 - 5.9 / 3.9 - 5.3 cm LV Systolic Diameter PLAX 2.7 cm IVS Diastolic Thickness 0.9 cm 0.6 - 1.0 / 0.6 - 0.9 cm LVPW Diastolic Thickness 1.3 cm 0.6 - 1.0 / 0.6 - 0.9 cm LV Relative Wall Thickness 0.5 RV Internal Dim ED PLAX 2.7 cm LA Systolic Diameter LX 3.1 cm 3.0 - 4.0 / 2.7 - 3.8 cm M-MODE Aortic Root Diameter MM 3.0 cm LA Systolic Diameter MM 2.9 cm LA Ao Ratio MM 1.0 MV E Point Septal Separation 0.2 cm AV Cusp Separation MM 2.1 cm DOPPLER MV Area PHT 2.3 cm??? Mitral E Point Velocity 23.8 cm/s Mitral A Point Velocity 60.5 cm/s Mitral E to A Ratio 0.4 MV Deceleration Time 331.9 ms MV E' Velocity 4.5 cm/s Mitral E to MV E' Ratio 5.3 TR Peak Velocity 234.1 cm/s TR Peak Gradient 21.9 mmHg Right Ventricular Systolic Press 26.7 mmHg FINDINGS Left Ventricle Left ventricular ejection fraction is estimated at 55%. Right Ventricle Normal right ventricular size and function. Right ventricular systolic pressure within normal limits. Right Atrium Normal right atrial size. Left Atrium Normal left atrial size. Mitral Valve Mitral valve thickened. Mild mitral regurgitation. Aortic Valve Trileaflet aortic valve. Tricuspid Valve Structurally normal tricuspid valve. Mild tricuspid regurgitation. Pulmonic Valve Structurally normal pulmonic valve. Pericardium Echo free space anterior to the right ventricle likely represents a fat pad. Aorta Normal size aortic root and proximal ascending aorta. CONCLUSIONS Normal left ventricular ejection fraction 55% Mild mitral regurgitation Mild tricuspid regurgitation No pericardial effusion Previewed by: Dr. Evert Michelle DO (Electronically Signed) Final Date: 08 January 2022 13:34
== END | disposition home or self-care (01) ==
LOC: RADECHMAIN 08:20
PROVIDERS: ATTEND Internal Medicine Critical Care Medicine
DX: I08.1 Rheumatic disorders of both mitral and tricuspid valves (principal)
CPT/HCPCS: 93306

== ENCOUNTER → 2022-01-09 | Outpatient (CLI) | payer BC ==
--- NOTE | 2022-01-10 07:36 | MM ---
Reason for Exam: Screening (asymptomatic). Last mammogram was performed 1 year(s) and 8 month(s) ago. Patient History: Menarche at age 13. First Full-Term at age 33. Late child-bearing (after 30). Postmenopausal. Risk Values: Madina 5 year model risk: 1.9%. NCI Lifetime model risk: 8.6%. Prior Study Comparison: 11/18/2017 Bilateral Screening Mammogram, [facility]. 11/19/2018 Bilateral Screening Mammogram, [facility]. 05/11/2020 Bilateral Screening Mammogram, [facility]. Tissue Density: The breast tissue is heterogeneously dense. This may lower the sensitivity of mammography. Findings: Analyzed By CAD. There is no suspicious group of microcalcifications or new suspicious mass in either breast. Overall Assessment: Negative, BI-RAD 1 Management: Screening Mammogram of both breasts in 1 year. A clinical breast exam by your physician is recommended on an annual basis and results should be correlated with mammographic findings. Electronically signed and approved by: Chris Ceja M.D. Radiologis
== END | disposition home or self-care (01) ==
LOC: RADMAMWWP 07:33
PROVIDERS: ATTEND Internal Medicine
DX: Z12.31 Encounter for screening mammogram for malignant neoplasm of breast (principal); Z78.0 Asymptomatic menopausal state
CPT/HCPCS: 77063; 77067

== ENCOUNTER → 2022-06-07 | Outpatient (CLI) | payer BC ==
--- NOTE | 2022-06-08 08:32 | XR ---
EXAMINATION TYPE: XR chest 2V DATE OF EXAM: 06/07/2022 COMPARISON: 03/17/2018 INDICATION: Right-sided lung pain when taking a deep breath TECHNIQUE: Frontal and lateral views of the chest are obtained. FINDINGS: The heart size is normal. The pulmonary vasculature is normal. Minimal bibasilar infiltrates are present. Correlate for atelectasis.. IMPRESSION: 1. Minimal right basilar subsegmental atelectasis at the lung bases.
== END | disposition home or self-care (01) ==
LOC: RADXRMAIN 15:49
PROVIDERS: ATTEND Internal Medicine
DX: J98.11 Atelectasis (principal)
CPT/HCPCS: 71046

== ENCOUNTER → 2022-12-12 | Outpatient (CLI) | payer BC ==
--- NOTE | 2022-12-12 12:53 | CA ---
Transthoracic Echo Report Name: Kristen Kim Age: 62 Gender: F : 1960 Exam Date: 12/12/2022 11:35 Exam Location: [facility] Ht (in): 64 Wt (lb): 120 Ordering Physician: Servando Davis MD Attending/Referring Phys: Package Handler Merari Samuel [facility] Procedure CPT: Indications: M34.9 SYSTEMIC SCLEROSIS, UNSPECIFIED Cardiac Hx: Technical Quality: Fair Contrast 1: Total Dose (mL): Contrast 2: Total Dose (mL): MEASUREMENTS (Male / Female) Normal Values 2D ECHO LV Diastolic Diameter PLAX 4.1 cm 4.2 - 5.9 / 3.9 - 5.3 cm LV Systolic Diameter PLAX 2.6 cm IVS Diastolic Thickness 0.8 cm 0.6 - 1.0 / 0.6 - 0.9 cm LVPW Diastolic Thickness 0.9 cm 0.6 - 1.0 / 0.6 - 0.9 cm LV Relative Wall Thickness 0.4 Ascending Aorta Diameter 3.5 cm M-MODE Aortic Root Diameter MM 2.6 cm LA Systolic Diameter MM 3.4 cm LA Ao Ratio MM 1.3 AV Cusp Separation MM 2.2 cm DOPPLER AV Peak Velocity 119.5 cm/s AV Peak Gradient 5.7 mmHg AV Mean Velocity 82.7 cm/s AV Mean Gradient 3.0 mmHg AV Velocity Time Integral 22.0 cm LVOT Peak Velocity 105.4 cm/s LVOT Peak Gradient 4.4 mmHg LVOT Velocity Time Integral 21.6 cm Mitral E Point Velocity 57.3 cm/s Mitral A Point Velocity 77.8 cm/s Mitral E to A Ratio 0.7 MV Deceleration Time 169.9 ms LV E' Lateral Velocity 10.7 cm/s Mitral E to LV E' Lateral Ratio 5.4 LV E' Septal Velocity 7.5 cm/s Mitral E to LV E' Septal Ratio 7.6 TR Peak Velocity 235.7 cm/s TR Peak Gradient 22.2 mmHg Right Atrial Pressure 3.0 mmHg Pulmonary Artery Systolic Pressu 25.2 mmHg Right Ventricular Systolic Press 25.2 mmHg FINDINGS Left Ventricle Normal Left ventricular size, wall thickness, systolic function with no obvious regional wall motion abnormalities. Left ventricular ejection fraction is estimated at 55-60%. Right Ventricle Right ventricle at upper limits of normal. Right Atrium Normal right atrial size. Left Atrium Mild left atrial dilatation. Mitral Valve Structurally normal mitral valve. Mitral valve thickened. Mild mitral regurgitation. Aortic Valve Trileaflet aortic valve. Trace aortic regurgitation. Tricuspid Valve Structurally normal tricuspid valve. Mild tricuspid regurgitation. Pulmonic Valve Structurally normal pulmonic valve. Trace pulmonic regurgitation. Pericardium Small pericardial effusion. Aorta Normal size aortic root and proximal ascending aorta. CONCLUSIONS 1. Normal left ventricle size and systolic function 2. Mild mitral and tricuspid regurgitation with normal right ventricular systolic pressure Previewed by: Dr. Shelley Watson MD (Electronically Signed) Final Date: 12 December 2022 12:53
== END | disposition home or self-care (01) ==
LOC: RADECHMAIN 11:19
PROVIDERS: ATTEND Internal Medicine Critical Care Medicine
DX: I08.1 Rheumatic disorders of both mitral and tricuspid valves (principal); M34.9 Systemic sclerosis, unspecified
CPT/HCPCS: 93306

== ENCOUNTER → 2023-03-11 | Outpatient (CLI) | payer BC ==
[~2023-03-11] MED LIST: SODIUM CHLORIDE 0.9% 500 ML 500 ML in EMPTY BAG 1 BAG IV PRN
[2023-03-11] MEDS: MAGNESIUM SULFATE-D5W PMX 1 GM in DEXTROSE/WATER 1 100ML.BAG IVPB NR ×2 (09:49→10:50)
[2023-03-11 09:51] VITALS: BP 110/71; PULSE 80; RESP 16; TEMP 97.6
== END ==
LOC: PROCWHC3 09:13
PROVIDERS: ATTEND Internal Medicine
DX: E61.2 Magnesium deficiency (principal)
CPT/HCPCS: 96365; 96366; J3475

== ENCOUNTER → 2023-03-11 | Outpatient (CLI) | payer BC ==
--- NOTE | 2023-03-12 09:31 | MM ---
Reason for Exam: Screening (asymptomatic). Last mammogram was performed 1 year(s) and 2 month(s) ago. Patient History: Menarche at age 13. First Full-Term at age 33. Late child-bearing (after 30). Postmenopausal. Risk Values: Madina 5 year model risk: 2.0%. NCI Lifetime model risk: 8.4%. Prior Study Comparison: 11/19/2018 Bilateral Screening Mammogram, [facility]. 05/11/2020 Bilateral Screening Mammogram, [facility]. 01/09/2022 Bilateral MG 3D screening mammo w/cad, [facility]. Tissue Density: The breast tissue is heterogeneously dense. This may lower the sensitivity of mammography. Findings: Analyzed By CAD. Heart appears symmetrical and stable. No significant interval change is evident. Few scattered benign round calcifications are present bilaterally. No suspicious groups of microcalcifications, spiculated or lobular masses, architectural distortion or other secondary signs of malignancy are mammographically apparent. Overall Assessment: Benign, BI-RAD 2 Management: Screening Mammogram of both breasts in 1 year. A negative mammogram report should not preclude additional follow up of suspicious palpable abnormalities. Patient should continue monthly self breast exam. A clinical breast exam by your physician is recommended on an annual basis and results should be correlated with mammographic findings. Electronically signed and approved by: Prateek Herrera D.O. Radiologis
== END | disposition home or self-care (01) ==
LOC: RADMAMWWP 07:14
PROVIDERS: ATTEND Internal Medicine
DX: Z12.31 Encounter for screening mammogram for malignant neoplasm of breast (principal); Z78.0 Asymptomatic menopausal state
CPT/HCPCS: 77063; 77067

== ENCOUNTER 2023-06-04 06:51 | Day surgery (SDC) | payer BC ==
[2023-06-04] MEDS ORDERED: ONDANSETRON 4 MG/2 ML VIAL IVP PRN (07:23)
[2023-06-04] MEDS ORDERED: LACTATED RINGERS 1,000 ML IV SCH (07:23)
[2023-06-04] MEDS ORDERED: LIDOCAINE 1% (10MG/ML) FOR IV START INTRADERMA PRN (07:23)
[2023-06-04 07:49] VITALS: TEMP 96.8
[2023-06-04] MEDS ORDERED: LIDOCAINE 1% INJ 10MG/ML (20 ML MDV) ONE (08:16)
[2023-06-04] MEDS ORDERED: PROPOFOL 10 MG/ML 20 ML VIAL IV ONE (08:16)
--- NOTE | 2023-06-04 08:43 | P.PCN ---
Date of Procedure: 06/04/23 Procedure(s) Performed: Brief history: Patient is a pleasant 63-year-old white female scheduled for an elective upper endoscopy as well as colonoscopy as a part of evaluation of long-standing history of GERD and has been deficiency anemia. She has been complaint of intermittent dysphagia to solids. Procedure performed: Esophagogastroduodenoscopy with biopsy Colonoscopy with snare polypectomy Preoperative diagnosis: GERD/intermittent dysphagia to solids Iron deficiency anemia Anesthesia: MAC Procedure: After informed consent was obtained from the patient was brought into the endoscopy unit and IV sedation was administered by anesthesia under continuous monitoring. Initially upper endoscopy was done. The Olympus GF 160 video endoscope was inserted inserted into the mouth and esophagus intubated without any difficulty and was gradually advanced into the stomach and duodenum and carefully examined. The bulb and second part of the duodenum appeared normal. Biopsies were done from the duodenum to evaluate for celiac disease. The scope was then withdrawn into the stomach adequately insufflated with air and upon careful examination the antrum had mild gastritis and biopsies were done from this area. Mucosa of the body, cardia and fundus appeared normal. The scope was then withdrawn into the esophagus. Small hiatal hernia noted. The GE junction was located at 40 cm to the incisors. It appeared regular with no erythema erosions or ulcerations. Rest of the esophagus appeared normal. Patient tolerated the procedure well. At this time the patient continued to remain sedation. Initial digital rectal examination was normal. Olympus CF 160 video colonoscope was then inserted into the rectum and gradually advanced to the right colon with ileocolic anastomosis was visualized and appeared normal. Prep was fair. In the ascending colon there was a 5 mm polyp that was removed by snare polypectomy. Rest of the, ascending colon, transverse colon, descending colon, sigmoid colon and rectum appeared normal. Retroflexion was performed in the rectum and no lesions were noted. Patient tolerated the procedure well. Impression: 1. Upper Endoscopy revealed small hiatal hernia and mild antral gastritis but no evidence of esophagitis or esophageal stricture 2. Colonoscopy revealed a 5 mm ascending colon polyp status post polypectomy normal ileocolic anastomosis in the right colon. Recommendations: Findings of this examination were discussed with the patient as well as her family. She was advised to follow with the biopsies. Continue with omeprazole 20 mg twice daily and Pepcid at bedtime and follow antrum reflux measures. If the biopsy of the colon polyp is adenoma she can have a repeat colonoscopy in 5 years
[2023-06-04 09:08] VITALS: BP 135/91; PULSE 61; RESP 16
== END 2023-06-04 09:21 | disposition home or self-care (01) ==
LOC: ORWHC2ENDO 06:51
PROVIDERS: ATTEND Internal Medicine Gastroenterology
DX: K29.50 Unspecified chronic gastritis without bleeding (principal); K21.9 Gastro-esophageal reflux disease without esophagitis; K44.9 Diaphragmatic hernia without obstruction or gangrene; D50.9 Iron deficiency anemia, unspecified; I10 Essential (primary) hypertension; Z88.2 Allergy status to sulfonamides; Z79.899 Other long term (current) drug therapy; Z90.49 Acquired absence of other specified parts of digestive tract; Z98.0 Intestinal bypass and anastomosis status
CPT/HCPCS: 88305; 45385; 43239; J2001; J2704

== ENCOUNTER → 2023-12-11 | Outpatient (CLI) | payer BC ==
--- NOTE | 2023-12-11 19:27 | CA ---
Transthoracic Echo Report Name: Kristen Kim Age: 63 Gender: F : 1960 Exam Date: 12/11/2023 08:21 Exam Location: [facility] Ht (in): 64 Wt (lb): 118 Ordering Physician: Servando Davis MD Attending/Referring Phys: Servando Davis MD [employer] Assistant Manager Sushila Pepper RDCS Procedure CPT: Indications: M34.9 Systemic Sclerosis Cardiac Hx: Technical Quality: Good Contrast 1: Total Dose (mL): Contrast 2: Total Dose (mL): MEASUREMENTS (Male / Female) Normal Values 2D ECHO LV Diastolic Diameter PLAX 3.8 cm 4.2 - 5.9 / 3.9 - 5.3 cm LV Systolic Diameter PLAX 2.6 cm IVS Diastolic Thickness 1.0 cm 0.6 - 1.0 / 0.6 - 0.9 cm LVPW Diastolic Thickness 1.2 cm 0.6 - 1.0 / 0.6 - 0.9 cm LV Relative Wall Thickness 0.6 RV Internal Dim ED PLAX 2.5 cm LA Systolic Diameter LX 3.3 cm 3.0 - 4.0 / 2.7 - 3.8 cm LV Diastolic Volume MOD BP 61.9 cm??? 67 - 155 / 56 - 104 cm??? LV Systolic Volume MOD BP 15.3 cm??? 22 - 58 / 19 - 49 cm??? LV Ejection Fraction MOD BP 75.3 % >= 55 % LV Diastolic Volume MOD 4C 62.2 cm??? LV Systolic Volume MOD 4C 13.8 cm??? LV Ejection Fraction MOD 4C 77.8 % LV Diastolic Length 4C 7.0 cm LV Systolic Length 4C 5.0 cm LV Diastolic Volume MOD 2C 58.8 cm??? LV Systolic Volume MOD 2C 17.0 cm??? LV Ejection Fraction MOD 2C 71.1 % LV Diastolic Length 2C 6.7 cm LV Systolic Length 2C 5.0 cm LA Volume 49.5 cm??? 18 - 58 / 22 - 52 cm??? LA Volume Index 31.9 cm???/m??? 16 - 28 cm???/m??? M-MODE Aortic Root Diameter MM 2.7 cm LA Systolic Diameter MM 3.8 cm LA Ao Ratio MM 1.4 AV Cusp Separation MM 1.7 cm DOPPLER AV Peak Velocity 149.3 cm/s AV Peak Gradient 8.9 mmHg AV Mean Velocity 101.6 cm/s AV Mean Gradient 4.7 mmHg AV Velocity Time Integral 34.4 cm AI Peak Velocity 251.9 cm/s AI Peak Gradient 25.4 mmHg AI Pressure Half Time 740.9 ms LVOT Peak Velocity 113.3 cm/s LVOT Peak Gradient 5.1 mmHg LVOT Velocity Time Integral 26.3 cm MV Area PHT 3.1 cm??? Mitral E Point Velocity 87.4 cm/s Mitral A Point Velocity 96.4 cm/s Mitral E to A Ratio 0.9 MV Deceleration Time 247.7 ms TR Peak Velocity 232.6 cm/s TR Peak Gradient 21.6 mmHg Right Ventricular Systolic Press 26.1 mmHg FINDINGS Left Ventricle Left ventricular ejection fraction is estimated at 55-60%. Mildly increased septal wall thickness. Mildly increased posterior wall thickness. No obvious regional wall motion abnormalities. Left ventricular cavity size normal. Right Ventricle Mild right ventricular dilatation. Right ventricular systolic pressure within normal limits. Right Atrium Mild right atrial dilatation. Prominent chiari network in the right atrium (normal variant) vs. cor triatriatum. Left Atrium Mildly increased left atrial volume. Mitral Valve Structurally normal mitral valve. Mitral valve thickened. Mild mitral regurgitation. Aortic Valve Trileaflet aortic valve. Trace to mild aortic regurgitation. Tricuspid Valve Structurally normal tricuspid valve. Mild tricuspid regurgitation. Pulmonic Valve Structurally normal pulmonic valve. Mild pulmonic regurgitation. Pericardium Small pericardial effusion. Aorta Normal size aortic root and proximal ascending aorta. CONCLUSIONS Diagnosis: Progressive systemic sclerosis, evaluate for pulmonary hypertension, RV size and function Increased LV mass with preserved systolic function Thickened pericardium with trace pericardial effusion especially posteriorly Mild right atrial and right ventricular enlargement Previewed by: Dr. Jaxon Dolan MD (Electronically Signed) Final Date: 11 December 2023 19:26
== END | disposition home or self-care (01) ==
LOC: RADECHMAIN 08:17
PROVIDERS: ATTEND Internal Medicine Critical Care Medicine
DX: M34.0 Progressive systemic sclerosis (principal); I31.39 Other pericardial effusion (noninflammatory); I51.7 Cardiomegaly
CPT/HCPCS: 93306

== ENCOUNTER 2023-12-31 17:14 | Inpatient (IN) | payer BC ==
[2023-12-31] MEDS ORDERED: SODIUM CHLORIDE 0.9% 1,000 ML BAG ONE (23:30)
[2024-01-01] MEDS ORDERED: ONDANSETRON 4 MG/2 ML VIAL ONE ×2 (06:57→17:57)
[2024-01-01] MEDS ORDERED: HYDROmorphone 1 MG/ML 1 ML SYRINGE ONE ×3 (06:57→18:00)
[2024-01-01] MEDS ORDERED: SCOPOLAMINE 1 MG/72 HR PATCH TRANSDERM ONE (12:21)
[2024-01-01] MEDS ORDERED: FAMOTIDINE 20 MG/2 ML VIAL ONE (12:22)
[2024-01-01] MEDS ORDERED: METOCLOPRAMIDE 5 MG/ML 2 ML VIAL ONE (12:22)
[2024-01-01] MEDS ORDERED: MIDAZOLAM 2 MG/2 ML VIAL ONE (12:45)
[2024-01-01] MEDS ORDERED: LACTATED RINGERS 1,000 ML BAG ONE (13:24)
[2024-01-01] MEDS ORDERED: ceFAZolin 1,000 MG VIAL ONE ×2 (13:24)
[2024-01-01] MEDS ORDERED: SODIUM CHLORIDE 0.9% 1,000 ML BAG ONE (13:24)
[2024-01-01] MEDS ORDERED: LIDOCAINE 1% INJ 10MG/ML (20 ML MDV) ONE (13:24)
[2024-01-01] MEDS ORDERED: PHENYLEPHRINE 10 MG/ML VIAL ONE (13:24)
[2024-01-01] MEDS ORDERED: fentaNYL (PF) 50 MCG/ML 2 ML AMP ONE (13:24)
[2024-01-01] MEDS ORDERED: SUCCINYLCHOLINE CHLORIDE 200 MG/10 ML VIAL IV ONE (13:24)
[2024-01-01] MEDS ORDERED: PROPOFOL 10 MG/ML 20 ML VIAL IV ONE (13:24)
[2024-01-01] MEDS ORDERED: SODIUM CHLORIDE 0.9% 50 ML BAG IV ONE (13:24)
[2024-01-01] MEDS ORDERED: HYDROmorphone 0.5 MG/0.5 ML SYRINGE ONE (17:57)
[2024-01-01] MEDS ORDERED: HYDROcodone/APAP 5-325MG 1 EACH TAB ONE (20:50)
[2024-01-02] MEDS ORDERED: ONDANSETRON 4 MG/2 ML VIAL ONE ×2 (01:08→06:56)
[2024-01-02] MEDS ORDERED: HYDROmorphone 0.5 MG/0.5 ML SYRINGE ONE (01:08)
[2024-01-02] MEDS ORDERED: HYDROcodone/APAP 5-325MG 1 EACH TAB ONE ×3 (06:56→21:02)
[2024-01-02] MEDS ORDERED: PANTOPRAZOLE 40 MG/10 ML VIAL ONE (08:47)
[2024-01-02] MEDS ORDERED: ENOXAPARIN 30 MG/0.3 ML SYRINGE SQ ONE ×2 (10:24→20:54)
[2024-01-02] MEDS ORDERED: FAMOTIDINE 20 MG TAB ONE (20:54)
[2024-01-02] MEDS ORDERED: SENNOSIDES-DOCUSATE SODIUM 1 EACH TAB PO ONE (22:11)
[2024-01-02] MEDS ORDERED: SODIUM CHLORIDE 0.9% 50 ML BAG ONE (23:59)
[2024-01-02] MEDS ORDERED: ceFAZolin 1,000 MG VIAL ONE (23:59)
[2024-01-02] MEDS ORDERED: SODIUM FERRIC GLUCONAT-SUCROSE 62.5 MG/5 ML VIAL ONE (23:59)
[2024-01-02] MEDS ORDERED: HYDROXYCHLOROQUINE SULFATE 200 MG TAB ONE (23:59)
[2024-01-02] MEDS ORDERED: SODIUM CHLORIDE 0.9% 100 ML BAG IV ONE (23:59)
[2024-01-03] MEDS ORDERED: HYDROcodone/APAP 5-325MG 1 EACH TAB ONE ×3 (02:20→17:51)
[2024-01-03] MEDS ORDERED: ATORVASTATIN 20 MG TAB ONE (08:57)
[2024-01-03] MEDS ORDERED: PANTOPRAZOLE 40 MG/10 ML VIAL ONE (08:57)
[2024-01-03] MEDS ORDERED: ENOXAPARIN 30 MG/0.3 ML SYRINGE SQ ONE ×2 (08:57→22:19)
[2024-01-03] MEDS ORDERED: amLODIPine 10 MG TAB ONE (08:58)
[2024-01-03] MEDS ORDERED: MAGNESIUM OXIDE 400 MG TAB ONE (08:58)
[2024-01-03] MEDS ORDERED: FERROUS SULFATE 325 MG TAB PO ONE (08:58)
[2024-01-03] MEDS ORDERED: HYDROXYCHLOROQUINE SULFATE 200 MG TAB ONE (09:00)
[2024-01-03] MEDS ORDERED: POTASSIUM CHLORIDE ER 20 MEQ TAB.ER PO ONE (10:20)
[2024-01-03] MEDS ORDERED: FAMOTIDINE 20 MG TAB ONE (22:19)
[2024-01-03] MEDS ORDERED: DOCUSATE 100 MG CAP ONE (22:19)
[2024-01-04] MEDS ORDERED: ONDANSETRON 4 MG/2 ML VIAL ONE (03:03)
[2024-01-04] MEDS ORDERED: HYDROcodone/APAP 5-325MG 1 EACH TAB ONE ×2 (03:04→09:30)
[2024-01-04] MEDS ORDERED: ENOXAPARIN 30 MG/0.3 ML SYRINGE SQ ONE (09:29)
[2024-01-04] MEDS ORDERED: ATORVASTATIN 20 MG TAB ONE (09:29)
[2024-01-04] MEDS ORDERED: PANTOPRAZOLE 40 MG/10 ML VIAL ONE (09:30)
[2024-01-04] MEDS ORDERED: amLODIPine 10 MG TAB ONE (09:30)
[2024-01-04] MEDS ORDERED: FERROUS SULFATE 325 MG TAB PO ONE (09:30)
[2024-01-04] MEDS ORDERED: MAGNESIUM OXIDE 400 MG TAB ONE (09:36)
--- NOTE | 2024-01-15 15:25 | PN ---
PROGRESS NOTE DATE OF SERVICE: 01/02/2024 HISTORY OF PRESENT ILLNESS: The patient is a 63-year-old female who had fallen playing pickleball the day before yesterday and she ended up landing on the right, had suffered from right intertrochanteric fracture. The patient underwent ORIF/IM nailing of her right hip area by Dr. Phelan yesterday, tolerated her procedure very well. She is lying down in bed, in no apparent distress. Her dressing was removed, she does appear to have jarod in three areas on her right side without any drainage or any erythema. The patient was taken off IV fluid resuscitation. She has been ambulating using a walker with physical therapy. Her hemoglobin did drop to 8 from 10. The patient had lost at least 2 g of hemoglobin. The patient was started by the Orthopedic Service iron 325 mg orally once every day. I will give the patient Venofer 100 mg IV piggyback x1. Repeat her hemoglobin again in the next 24 hours, transfuse the patient if the hemoglobin is less than 7. The patient was instructed to continue incentive spirometer. She continues to do well at this point in time. She has no chest pain. She has no shortness of breath. She has no abdominal pain. She is tolerating her diet very well. She has not had a bowel movement yet. REVIEW OF SYSTEMS: CONSTITUTIONAL: The patient does not appear to be in acute distress at this time. HEENT: The patient denies any headache. She denies any blurred vision, double vision. She has no sore throat. She has no dysphagia. RESPIRATORY: The patient denies any coughing. She denies any hemoptysis. She does not appear to be in acute shortness of breath. She denies any pleurisy or hemoptysis. CARDIOVASCULAR: The patient denies any chest pain. She has no orthopnea or PND. She has no edema. GASTROINTESTINAL: The patient denies any abdominal pain. She did complain of some heartburn. She denies any hematemesis or hematochezia. No black tarry stool. No more nausea or vomiting. GENITOURINARY: Catheter was removed. She has no dysuria or hematuria. She has no urinary frequency. MUSCULOSKELETAL: The patient does complaint of pain in the right hip, not as bad as yesterday. She does complain of moderate pain in the right wrist as well that has been chronic. SKIN: The patient has no rash. [place] appears to be intact with no erythema or no drainage. NEUROLOGIC: The patient has no syncope or seizure. She has no headache at this time. ENDOCRINE: Has no abnormal blood sugar. PSYCHIATRY: Has no anxiety or depression at this time. PHYSICAL EXAMINATION: GENERAL: This is a 63-year-old female, lying on the bed, in no apparent distress. VITAL SIGNS: Temperature is 97.4, blood pressure 116/76, heart rate is 66, respirations 18, oxygenation is 93% on room air. EXAMINATION OF THE HEAD, EYES, EARS, NOSE, and THROAT: Head is atraumatic and normocephalic. Pupils are equal, round, and reactive to light and accommodation. Extraocular muscle movement are intact. Sclerae nonicteric. Conjunctivae are pale. Mucous membranes and mouth are somewhat dry. NECK: Supple. No JVP. No carotid bruit. CHEST EXAMINATION: Decreased breath sound at bases, otherwise clear to auscultation. No crackles. No wheezes. No chest wall tenderness. No intercostal retractions. HEART EXAMINATION: First heart sound is depressed. Second heart sound is normal. There is no gallop or murmur. No rubs or heaves. ABDOMEN: Soft, nontender, nondistended. Positive bowel sounds. No hepatosplenomegaly. EXTREMITIES: No edema. No calf tenderness. Dorsalis pedis +2 bilaterally. Jarod appear to be intact on the right side of the hip and three locations without evidence of erythema or drainage. NEUROLOGIC EXAMINATION: The patient is awake, alert, and oriented x3. Cranial nerves II through XII appear grossly intact. Muscle power 5/5 in upper and lower extremities bilaterally. LABORATORY EVALUATION: Reviewed. Her hemoglobin is down to 8. ASSESSMENT AND PLAN: 1. Postoperative day #1, status post ORIF of the right intertrochanteric hip/intramedullary nailing. Continue the use of incentive spirometer. The patient was instructed to increase her activity using a walker. Physical therapy evaluation. Most likely, the patient will be able to be discharged home in the next 24 hours. I do not believe the patient will require any subacute rehabilitation at this time as the patient is very active. Continue Lovenox 30 mg subcutaneously every 12 hours for the next 24 hours. The patient can be restarted back on her dipyridamole 75 mg orally three times everyday. Continue current pain management as outlined by Orthopedic Surgery. Follow up with her hemoglobin tomorrow morning. 2. Acute blood loss anemia. Hemoglobin is down to 8. The patient will be given one dose of Venofer 100 mg IV piggyback x1. Continue oral iron 325 mg orally once everyday. Monitor the patient's CBC over the next 24 hours. If her hemoglobin is lower or less than 7, transfuse 1 unit of packed red blood cells. 3. History of limited scleroderma. Continue the patient on Plaquenil 200 mg orally once everyday, continue amlodipine 10 mg orally once everyday, may restart the patient on dipyridamole 75 mg orally three times everyday if it is okay with Orthopedic Surgery tomorrow morning. 4. Mixed hyperlipidemia. Continue the patient on atorvastatin 20 mg once everyday. Monitor the patient's lipid panel, keep LDL 55 to 70. 5. Hypomagnesemia. Continue the patient on magnesium oxide 400 mg orally once everyday. Monitor the patient's magnesium level in the next 24 hours. 6. Gastroesophageal reflux disease with esophagitis. Continue the patient on Protonix 40 mg IV push over the next 24 hours and then switch to oral Protonix tomorrow morning. Continue famotidine 40 mg at bedtime. 7. DVT prophylaxis. Continue Lovenox 40 mg subcutaneously every 12 hours. 8. GI prophylaxis. Continue PPI and famotidine. 9. We will continue to follow the patient with you. Hopefully, the patient can be discharged home in the next 24 hours subacute rehabilitation based on physical therapy recommendation. MMODL / IJN: [id number] /
--- NOTE | 2024-01-24 12:09 | CONS ---
CONSULTATION CHIEF COMPLAINT: Status post fall with right intertrochanteric hip fracture. HISTORY OF PRESENT ILLNESS: This is a 63-year-old female with a previous medical history significant for limited scleroderma, has been under the care of the [facility] Rheumatology Department, has been on Plaquenil 200 mg orally once a day as well as dipyridamole 75 mg orally 2 times everyday along with sildenafil 20 mg orally 3 times everyday, with the use of Botox injection to try to control some of the contracture that she has in her upper extremities. The patient also did have a history of hypertension and hypertensive cardiovascular disease, hyperlipidemia, history of severe gastroesophageal reflux disease (on PPI), hypomagnesemia. The patient apparently was playing pickleball. She was backing up and all of sudden, she tripped and fell onto her right side of her head. She suffered from severe pain in the right side of the hip, with significant deformity to the right lower extremity. The patient was transported to the emergency department at [facility]. She had an x-ray that showed evidence of right hip fracture with extension of the fracture to the lesser trochanter as well as to the subtrochanteric area. The patient was a good inpatient under Orthopedic Surgery, Dr. Phelan. We were asked to see the patient from Medicine for preoperative medical clearance as the patient is going to the OR immediately in the morning. Laboratory evaluation was reviewed in the ER. Her white count was 10.7, hemoglobin 10.0, hematocrit is 30.6, platelet count 356. Her sodium is 144, potassium 4.0, chloride 110, bicarb is 22, BUN is 26, and creatinine 0.83. Her glucose level was about 85, AST was 23, ALT was 13, alkaline phosphatase was 73, total bilirubin was 0.4. I reviewed the chest x-ray that showed no evidence of any infiltrate. 12-lead EKG did not show evidence of acute ST-T wave changes, therefore the patient was cleared for the surgical intervention. The patient is going for moderate risk surgery without any contraindication for the surgical intervention at this time. I adjusted the patient's Zofran to 4 mg IV push every 6 hours as needed, kept her on IV fluid resuscitation with aspiration precautions. PAST MEDICAL HISTORY: 1. Limited scleroderma. 2. Hypertension and hypertensive cardiovascular disease. 3. Hyperlipidemia. 4. Severe gastroesophageal reflux disease with esophagitis. 5. Osteoarthritis. PAST SURGICAL HISTORY: 1. Bilateral foot surgery. 2. Cholecystectomy. 3. Appendectomy. 4. Right wrist surgery. 5. Small bowel resection. 6. 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 MEDICATIONS: She is currently on the following medications: 1. Amlodipine 10 mg orally once everyday. 2. Plaquenil 200 mg orally once everyday. 3. Botox injection as needed at [facility]. 4. Dipyridamole 75 mg orally 3 times everyday. 5. Atorvastatin 20 mg orally once everyday. 6. Zofran 4 mg orally every 8 hours as needed. 7. Sildenafil citrate 20 mg orally 3 times everyday. 8. Omeprazole 20 mg orally twice everyday. 9. Magnesium oxide 400 mg orally once a day. 10.Famotidine 40 mg orally once at bedtime. 11.Hydrocodone/acetaminophen 7.5/325 one tablet every 12 hours as needed. 12.Skin prep wipes as needed for digit ulcers. ALLERGIES: The patient is allergic to Bactrim. SOCIAL HISTORY: The patient denies any history of smoking. She denies any history of drinking. No drug use or abuse. She lives with her . FAMILY HISTORY: Her father at the age of 86 from amyloidosis and had hypertension. Mother at the age of 76 from liver cancer. The patient has 2 brothers alive and well. She has 2 sisters, 1 . The patient has 2 daughter alive and well. REVIEW OF SYSTEMS: CONSTITUTIONAL: The patient is lying down in bed, appears to be in moderate distress. HEENT: The patient denies any blurred vision at this time. She does complain of dry mouth. She denies any sore throat. She denies any loss of hearing. She denies any swollen glands. RESPIRATORY: The patient denies any coughing at this time. She denies any shortness of breath. She denies any orthopnea. She denies any pleurisy or hemoptysis. CARDIOVASCULAR: The patient denies any chest pain at this time. She has no orthopnea, PND. She has no edema. GASTROINTESTINAL: The patient does complaint of some epigastric abdominal pain associated with nausea and vomiting. She had an episode of coffee-grounds emesis earlier that has resolved. She does complain of heartburn. GENITOURINARY: The patient denies any dysuria or hematuria. She denies any urgency. MUSCULOSKELETAL: The patient does complaint of moderate right wrist swelling. She does complain of significant pain in the right hip area, with deformity to the right lower extremity, which is shorter and externally rotated. SKIN: Old scabs to the digits secondary to her scleroderma. NEUROLOGIC: The patient appears to be drowsy, opens her eyes in response to verbal stimuli. She denies any dizziness or lightheadedness. ENDOCRINE: No abnormal blood sugar. PSYCHIATRY: No anxiety or depression at this time. PHYSICAL EXAMINATION: GENERAL: The patient is lying on bed, in mild distress. VITAL SIGNS: Temperature is 97.5, blood pressure is 120/75, heart rate is 85, respiration is 18, oxygen saturation was 95% on room air. HEAD, EYES, EARS, NOSE, AND THROAT: Head is atraumatic, normocephalic. Skin is stretched quite a bit due to scleroderma. Mucous membranes of mouth are very dry. NECK: Supple. No JVP. Decreased carotid upstroke bilaterally. CHEST: Decreased breath sounds at bases, few rhonchi. No expiratory wheezes. No chest wall tenderness. No intercostal retractions. CARDIAC: First heart sound is depressed. Second heart sound is normal. There are no gallop, murmur, rubs, or heaves. ABDOMEN: Soft, nontender, nondistended. Positive bowel sounds. No hepatosplenomegaly. EXTREMITIES: Right lower extremity is deformed, and is externally rotated and shorter. Dorsalis pedis +2 bilaterally. There is deformity of the right wrist as well. That has been chronic due to her scleroderma. NEUROLOGIC: The patient is awake, alert, and oriented x3. Cranial nerves 2 through 12 appear to be grossly intact. Muscle power 5/5 in upper extremities and the left lower extremities. I did not attempt over the right lower extremity due to the fracture. LABORATORY EVALUATION: White count 10.7, hemoglobin 10.0, hematocrit 30.6, platelet count 256. Sodium is 144, potassium 4.0, chloride 110, bicarbonate 22, BUN 26, creatinine 0.83, blood glucose level 85, AST 23, ALT 13, alkaline phosphatase 73, total bilirubin 0.4. Chest x-ray is negative. Right hip x-ray showed hip fracture with extension of the fracture to the lesser trochanter and subtrochanteric extension (intertrochanteric fracture on the right). 12-lead EKG; sinus rhythm with no evidence of acute ST-T wave changes. ASSESSMENT AND PLAN: 1. Status post fall with right intertrochanteric fracture. The patient is going to the OR for open reduction and internal fixation by Dr. Phelan, possibly intramedullary nailing. The patient is going for moderate risk surgery at this time. There is no contraindication for the proposed surgical intervention. I spoke with the patient and her about the risks. The patient is to be started on Zofran 4 mg IV push every 6 hours for nausea. I will start the patient on Protonix 40 mg IV push every 24 hours, continue famotidine 40 mg at bedtime as well due to her significant gastroesophageal reflux disease and due to scleroderma. I will start the patient on Lovenox 30 mg subcutaneously every 12 hours after surgical intervention. Monitor the patient's hemoglobin and hematocrit very closely as the patient may drop down since she is dehydrated at this time after surgical intervention. The patient may need to have a blood transfusion for hemoglobin less than 7. The patient will need to have an iron supplement after surgery. We will start the patient on Venofer 100 mg IV piggyback x1 or every 24 hours x3 doses. Continue current management as outlined by Orthopedic Surgery. Continue to follow the patient very closely. 2. Limited scleroderma. Continue the patient on Plaquenil 200 mg orally once everyday. I will restart the patient back in her dipyridamole 75 mg orally 2 times everyday once okay with Orthopedic Surgery. I will restart the patient back on her amlodipine 10 mg orally once everyday as well. I will hold off sildenafil citrate as this may cause significant drop in her blood pressure while she was in the hospital. 3. Hypertension and hypertensive cardiovascular disease. Continue the patient on amlodipine 10 mg orally once everyday. Monitor the patient's blood pressure very closely. 4. Hyperlipidemia. Continue the patient on atorvastatin 20 mg orally once everyday. Monitor the patient's blood count, keep LDL 55 to 70. 5. Hypomagnesemia. Continue the patient on magnesium oxide 400 mg orally once everyday. 6. Severe gastroesophageal reflux disease with esophagitis without significant bleeding. Start the patient on Protonix 40 mg IV push every 24 hours. Continue famotidine 40 mg at bedtime. Monitor the patient's CBC over the next 24 hours. 7. Deep vein thrombosis prophylaxis. Start the patient on Lovenox 30 mg subcutaneously every 12 hours after surgical intervention. 8. Gastrointestinal prophylaxis. Continue the patient on Protonix 40 mg IV push every 24 hours. Continue famotidine 40 mg at bedtime. Thank you, Dr. Phelan, for allowing me to participate in the care of your patient. I would be more than happy to follow the patient along with you. MMODL / IJN: [id number] /
--- NOTE | 2024-01-28 13:24 | XR ---
Patient: Kristen Kim Ordering Physician: Unknown, Unknown ID: [id number] Phone, Pager: Phone: N/ A Pager: N/A : 1960 Age/Gender: 63Y, F Primary Location: N/A Procedure: XR Hip Complete RT Edenilson perrin Date: 12/31/2023 8:55:00 PM EXAMINATION TYPE: XR Hip Complete RT DATE OF EXAM: 12/31/2023 9:33 PM CLINICAL INDICATION: Pain COMPARISON: None. TECHNIQUE: XR Hip Complete RT; hip was examined in the frontal and lateral projections FINDINGS/IMPRESSION: Acute fracture with medial fracture line extending superior to the lesser trochanter with extension t o the subtrochanteric region laterally of the right proximal femur.
--- NOTE | 2024-01-28 13:24 | XR ---
Patient: Kristen Kim Ordering Physician: Unknown, Unknown ID: [id number] Phone, Pager: Phone: N/ A Pager: N/A : 1960 Age/Gender: 63Y, F Primary Location: N/A Procedure: UNKNOWN Study Date: 12/31/2023 9:02:00 PM EXAMINATION TYPE: XR chest 1V DATE OF EXAM: 12/31/2023 9:32 PM CLINICAL INDICATION: Presurgical COMPARISON: 06/07/2022 TECHNIQUE: XR chest 1V Frontal view of the chest. FINDINGS: Lungs/Pleura: There is no evidence of pleural effusion, focal consolidation, or pneumothorax. Pulmonary vascularity: Unremarkable. Heart/mediastinum: Cardiomediastinal silhouette is unremarkable. Musculoskeletal: No acute osseous pathology. Other findings: None IMPRESSION: No acute cardiopulmonary disease/process.
--- NOTE | 2024-02-06 14:44 | OP ---
OPERATIVE REPORT DATE OF SERVICE : 01/01/2024 PREOPERATIVE DIAGNOSIS: Displaced right reverse obliquity intertrochanteric femur fracture. POSTOPERATIVE DIAGNOSIS: Displaced right reverse obliquity intertrochanteric femur fracture. PROCEDURE: Trochanteric intramedullary nailing, right intertrochanteric femur fracture. FIELD CONTRACTOR: Oseas Rodas. ANESTHESIA: General. PREP: DuraPrep. INDICATIONS FOR PROCEDURE: The patient is a 63-year-old female, who presents after falling yesterday injuring her right hip. Upon evaluation, she was noted to have a noted to have a significantly displaced reverse obliquity right intertrochanteric femur fracture. A discussion of the risks and benefits of operative intervention was made with the patient and her family. They opted to proceed. Operative risks to include infection, neurovascular injury, development of nonunion, malunion, possible hardware failure, and possible need for subsequent procedures was discussed. Informed consent was obtained. DESCRIPTION OF PROCEDURE: The patient was brought to the operating room and after induction of general anesthesia, was placed supine on the Payne table. The fracture was reduced with longitudinal traction and internal rotation of the right lower extremity. This was verified on the AP and lateral views with fluoroscopy. The right hip was then prepped and draped in a normal fashion. A 7 cm incision was then made proximal to the greater trochanter. Skin was incised sharply. Subcutaneous tissues were divided sharply. The gluteus alex fascia was opened. Blunt dissection was then made down to the level of the greater trochanter. A starting awl was then utilized in the tip of the greater trochanter with the aid of fluoroscopy. A ball-tipped guidewire was then inserted down the femoral canal down to the level of the distal metaphysis. I then began reaming with flexible reamers starting at 9 mm up to 12.5 mm. There was good distal chatter. The proximal portion of the femur was then reamed up to 15.5 mm with a straight reamer down to the level of the lesser trochanter. An 11 mm x 34 cm gamma nail was then inserted over the guidewire gently. This was seated to the appropriate depth with the aid of fluoroscopy. The ball-tipped guidewire was removed. A threaded guide pin was placed into the femoral head and neck slightly inferior on the anterior view and the center portion on the lateral view. This was taken to within 5 mm of the articular surface. A triple reamer was used to a depth of 95 mm. A 95 mm compression screw was then inserted with good purchase. The proximal locking screw was inserted capturing this. Attention was then paid towards the distal locking screws. Traction was removed. Using the perfect circles technique, the distal locking screws were placed utilizing 5.0 mm screws of the appropriate length. Good purchase was obtained. Final fluoroscopic views showed adequate reduction of this complex fracture pattern and placement of the implant. The wounds were irrigated with normal saline. The gluteus alex fascia was closed with a running 0 Vicryl suture. The subcutaneous tissues were reapproximated with interrupted 2-0 Vicryl sutures. The skin was reapproximated with jarod. A sterile dressing was applied. The patient was awoken from general anesthesia and transferred to the recovery room in good condition. Blood loss is estimated at 100 cc. No complications were incurred. Sponge and needle counts were correct at the end of the case. Implant used was a Ramon Gamma 11 mm x 34 cm nail with 125 degree neck shaft angle. A 95 mm compression screw was utilized. Oseas OCHOA assisted during the major components of the case to include positioning, reduction, implantation, and closure. MMODL / IJN: [id number] /
--- NOTE | 2024-02-06 14:44 | HP ---
HISTORY AND PHYSICAL CHIEF COMPLAINT: Right hip pain. HISTORY OF PRESENT ILLNESS: The patient is a 63-year-old female, who presents with right hip pain after falling yesterday while playing pickleball. She notes she fell directly on the right hip. She is unable to bear weight after the injury. She was very active prior to this. PAST MEDICAL HISTORY: Significant for scleroderma and Raynaud's syndrome. PAST SURGICAL HISTORY: Significant for bilateral foot surgery, right wrist fracture fixation, partial small bowel resection. CURRENT MEDICATIONS: Per the chart. ALLERGIES: She notes allergies to sulfa. FAMILY HISTORY: Noncontributory. SOCIAL HISTORY: Negative for current tobacco or alcohol use. REVIEW OF SYSTEMS: 16-point review of systems is otherwise noncontributory. PHYSICAL EXAMINATION: On examination, the patient is a well-developed, well-nourished female, who appears to be in mild distress secondary to right hip pain. She is afebrile with stable vital signs. She is alert and oriented x4. She is nontender about the upper extremities. She is nontender about the cervical, thoracic, and lumbar spine. No step-off is noted. She does have significant shortening and flexion of the right hip. She has painful range of motion of the right hip. She is nontender about both knees, ankles and feet. Her distal neurovascular exam appears intact in the right lower extremity. IMAGING DATA: X-rays to include multiple views of the right hip show a displaced reverse obliquity intertrochanteric femur fracture. IMPRESSION: 1. Right displaced reverse obliquity intertrochanteric femur fracture. 2. History of scleroderma. RECOMMENDATIONS: I talked to the patient and her at length regarding her condition. At this point, recommend proceeding with surgical intervention. We will plan to proceed with trochanteric intramedullary nailing of her right intertrochanteric femur fracture today if medically cleared. Risks and benefits were discussed at length in layman's terms. MMODL / IJN: [id number] /
--- NOTE | 2024-02-11 18:21 | FL ---
EXAMINATION TYPE: FL guidance operating room, XR Hip Limited RT COMPARISON: Pre Operative Images if available both CT/MRI or plain film CLINICAL INDICATION: Female, 63 years old with history of FRACTURE RIGHT HIP ORIF IN OR; TECHNIQUE: FL guidance operating room, XR Hip Limited RT, multiple fluoroscopic images provided for p tricia. Total fluoroscopy time: 1.14 minutes Total submitted images to PACS: 4 DAP: [id number] mGym2 Gycm2 uGym2 cGycm2 FINDINGS: Fluoroscopic images during internal fixation/arthroplasty demonstrate fixation hardware in appropriat e position. Hardware appears intact. No immediate complication identified. IMPRESSION: 1. No evidence for intraoperative complication. 2. Please see the operative/procedural note for further details. [facility], , 02/11/2024 6:18 PM
== END 2024-01-04 14:53 | disposition home or self-care (01) | DRG 481 ==
LOC: 4SSUR 17:14
PROVIDERS: ADMIT Internal Medicine; ATTEND Internal Medicine
PROC: 0QS606Z Reposition Right Upper Femur with Intramedullary Internal Fixation Device, Open Approach (ICD-10-PCS; principal; 2023-12-31)
PROC: 3E0T3BZ Introduction of Anesthetic Agent into Peripheral Nerves and Plexi, Percutaneous Approach (ICD-10-PCS; 2023-12-31)
PROC: 8E0YXBF Computer Assisted Procedure of Lower Extremity, With Fluoroscopy (ICD-10-PCS; 2023-12-31)
DX: S72.141A Displaced intertrochanteric fracture of right femur, initial encounter for closed fracture (principal); D62 Acute posthemorrhagic anemia; E78.2 Mixed hyperlipidemia; E83.42 Hypomagnesemia; E86.0 Dehydration; M19.90 Unspecified osteoarthritis, unspecified site; M34.9 Systemic sclerosis, unspecified; I10 Essential (primary) hypertension; K21.00 Gastro-esophageal reflux disease with esophagitis, without bleeding; W01.0XXA Fall on same level from slipping, tripping and stumbling without subsequent striking against object, initial encounter; Z88.2 Allergy status to sulfonamides; Z90.49 Acquired absence of other specified parts of digestive tract
CPT/HCPCS: 71045; 73501; 73502; 86850; 86900; 86901; 96374; 96375; 99285

== ENCOUNTER → 2024-01-22 | Outpatient (CLI) | payer BC ==
--- NOTE | 2024-01-22 11:32 | CT ---
EXAMINATION TYPE: CT hip RT wo con CT DLP: 500.6 mGycm, Automated exposure control for dose reduction was used. DATE OF EXAM: 01/22/2024 11:18 AM COMPARISON: Right hip radiograph 01/15/2024, 01/01/2024, 12/31/2023 CLINICAL INDICATION:Female, 63 years old with history of S72.101A UNSP TROCHANTERIC FRACTURE OF RIGHT FEMUR; PHH, right femur fracture TECHNIQUE: Axial images were obtained of the right hip without the use of IV contrast. Additional co neli and sagittal reformatted images and soft tissue and bone window were obtained for review. 3-D r econstruction was created on a separate workstation. FINDINGS: Postsurgical changes with full intramedullary ochoa and fixation nail throughout the right fe mur. There are 2 transverse screws involving the distal femur. No surrounding periprosthetic lucency to suggest loosening. Hardware appears intact and appropriately aligned. Fixation hardware crosses th rough previously seen proximal right comminuted femoral neck/diaphyseal fracture. No dislocation or j oint effusion. No sizable fluid collection identified. Mild soft tissue edema. The visualized portion of the pelvis is unremarkable. IMPRESSION: Postsurgical changes from fixation of proximal comminuted right femoral fracture. Hardware appears in tact with appropriate alignment.
== END | disposition home or self-care (01) ==
LOC: RADCTMAIN 10:45
PROVIDERS: ATTEND Orthopaedic Surgery
DX: S72.101A Unspecified trochanteric fracture of right femur, initial encounter for closed fracture (principal)

== ENCOUNTER → 2024-06-10 | Outpatient (CLI) | payer BC ==
--- NOTE | 2024-06-10 08:30 | MM ---
Reason for Exam: Screening (asymptomatic). Last mammogram was performed 1 year(s) and 3 month(s) ago. Patient History: Menarche at age 13. First Full-Term at age 33. Late child-bearing (after 30). Postmenopausal. Risk Values: Madina 5 year model risk: 2.1%. NCI Lifetime model risk: 7.8%. Prior Study Comparison: 05/11/2020 Bilateral Screening Mammogram, [facility]. 01/09/2022 Bilateral MG 3D screening mammo w/cad, [facility]. 03/11/2023 Bilateral MG 3D screening mammo w/cad, [facility]. Tissue Density: The breasts are heterogeneously dense, which may obscure small masses. Findings: Analyzed By CAD. Right breast: There is no suspicious group of microcalcifications or new suspicious mass. Left breast: There is no suspicious group of microcalcifications or new suspicious mass. Overall Assessment: Negative, BI-RAD 1 Management: Screening Mammogram of both breasts in [address] [facility] will attempt to contact patient to return for supplemental views and ultrasound if indicated. Patient should continue monthly self-breast exams. A clinical breast exam by your physician is recommended on an annual basis. This exam should not preclude additional follow-up of suspicious palpable abnormalities. Note on Madina scores and lifetime risk: 1. A Madina score greater than 3% is considered moderate risk. If this is the case, consider specialist referral to assess eligibility for a risk reducing agent. 2. If overall lifetime risk for the development of breast cancer is 20% or higher, the patient may qualify for future screening with alternating mammogram and breast MRI. [facility], , 06/10/2024 8:26 AM. Electronically signed and approved by: Toni Chin DO
--- NOTE | 2024-06-10 11:00 | BD ---
EXAMINATION TYPE: Axial Bone Density DATE OF EXAM: 06/10/2024 CLINICAL HISTORY: 64 years old Female. ICD-10 CODE: M81.0 Disorder of bone , Additional History: Height: 63.5 in Weight: 114 lbs FRAX RISK QUESTIONS: History of Fracture in Adulthood: pt fx rt hip 63, rt wrist age 49 Secondary Osteoporosis: 3. Menopause before 45: age 39 RISK FACTORS HISTORY OF: Hip Fracture (Right): age 63 History of Wrist Fracture: rt wrist age 49 Surgery to Hip(right)Wrist (right): hip age 63; wrist age 49 EXAM MEASUREMENTS: Bone mineral densitometry was performed using the [employer] System. Bone mineral density as measured about the Lumbar spine is: ----- L1-L4(G/cm2): 1.029 T Score Values are as follows: ----- L1: -0.9 ----- L2: -1.8 ----- L3: -1.0 ----- L4: -1.6 ----- L1-L4: -1.3 Z Score Values are as follows: ----- L1: 1.2 ----- L2: 0.2 ----- L3: 1.1 ----- L4: 0.5 ----- L1-L4: 0.8 Bone mineral density has: Increased 1.5% since study of: 10/03/2017 Bone mineral density about the L hip (g/cm2): 0.786 T Score values are as follows: -----L Neck: -2.0 -----L Total: -1.8 Z Score values are as follows: -----L Neck: -0.3 -----L Total: -0.3 Bone mineral density has: Decreased -5.3% since study of: 10/03/2017 FRAX%s: The graph provided illustrates a 15.8% chance for a major osteoporotic fx and a 2.7% chance f or the hips probability for fx in 10 years time. IMPRESSION: Osteopenia (T Score between -2.5 and -1). There is slightly increased risk of fracture and the patient may be considered for treatment. Re-Screen 2-5 years. NOTE: T-SCORE=SD OF THE YOUNG ADULT MEAN. [facility], , 06/10/2024 10:58 AM
== END | disposition home or self-care (01) ==
LOC: RADMAMWWP 07:02
PROVIDERS: ATTEND Internal Medicine
DX: Z12.31 Encounter for screening mammogram for malignant neoplasm of breast (principal); R92.333 Mammographic heterogeneous density, bilateral breasts; M81.0 Age-related osteoporosis without current pathological fracture; Z78.0 Asymptomatic menopausal state
CPT/HCPCS: 77063; 77067; 77080

== ENCOUNTER → 2024-07-08 | Outpatient (CLI) | payer BC ==
[2024-07-08 19:21] LABS: HCT 37.6 % (37.2-46.3); HGB 11.5 g/dL (12.0-15.0); MCH 27.2 pg (27.0-32.0); MCHC 30.6 g/dL (32.0-37.0); MCV 88.9 FL (80.0-97.0); NRBC Per 100 WBC 0 X 10*3/uL (0.00-0.01); Platelet Count 313 X 10*3/uL (140-440); RBC 4.23 X 10*6/uL (4.10-5.20); RDW 14.9 % (11.5-14.5); WBC 7.64 X 10*3/uL (4.50-10.00)
[2024-07-08 20:00] LABS: ALT 16 U/L (8-44); AST 20 U/L (13-35); Albumin 3.9 g/dL (3.8-4.9); Albumin/Globulin Ratio 1.44 Ratio (1.60-3.17); Alkaline Phosphatase 72 U/L (41-126); BUN/Creat Ratio 34.43 Ratio (12.00-20.00); Blood Urea Nitrogen 24.1 mg/dL (9.0-27.0); C Reactive Protein <0.30 mg/dL (0.00-0.80); Calcium 9.3 mg/dL (8.7-10.3); Carbon Dioxide 24.7 mmol/L (21.6-31.8); Chloride 106 mmol/L (96-109); Globulin 2.7 g/dL (1.6-3.3); Glucose 93 mg/dL (70-110); Potassium 3.8 mmol/L (3.5-5.5); Sodium 141 mmol/L (135-145); T4, Free (Free Thyroxine) 1.04 ng/dL (0.80-1.80); Total Bilirubin 0.3 mg/dL (0.3-1.2); Total Protein 6.6 g/dL (6.2-8.2)
[2024-07-08 20:11] LABS: Erythrocyte Sedimentation Rate 16 mm/Hr (0-30)
== END | disposition home or self-care (01) ==
LOC: LABWHC1 13:22
PROVIDERS: ATTEND Orthopaedic Surgery
DX: S72 Fracture of femur (principal)
CPT/HCPCS: 36415; 80053; 82306; 84439; 84443; 85027; 85652; 86140

== ENCOUNTER 2024-08-07 10:41 | Outpatient (CLI) | payer BC ==
[~2024-08-07 10:41] MED LIST changes: +SODIUM CHLORIDE 0.9% 250 ML in EMPTY BAG 1 BAG IV PRN; -SODIUM CHLORIDE 0.9% 500 ML 500 ML in EMPTY BAG 1 BAG IV PRN
[2024-08-07 11:06] VITALS: BP 112/78; PULSE 88; RESP 16; TEMP 97.4
[2024-08-07] MEDS: SODIUM CHLORIDE 0.9% 500 ML 500 ML in EMPTY BAG 1 BAG IV PRN (11:07)
[2024-08-07] MEDS: ZOLEDRONIC ACID 5 MG in SODIUM CHLORIDE 0.9% 100 ML IV NR (11:08)
== END 2024-08-07 13:26 | disposition home or self-care (01) ==
LOC: PROCWHC3 10:41
PROVIDERS: ATTEND Internal Medicine
DX: M85.852 Other specified disorders of bone density and structure, left thigh (principal)
CPT/HCPCS: 96365; J3489

== ENCOUNTER → 2024-08-17 | Outpatient (CLI) | payer BC ==
--- NOTE | 2024-08-17 14:10 | CT ---
EXAMINATION TYPE: CT hip RT wo con DATE OF EXAM: 08/17/2024 COMPARISON: Prior CT June 17, 2024. CLINICAL INDICATION: Female, 64 years old with history of S72.101K UNSP TROCHAN FX RIGHT FEMUR; [facility], Automated exposure control for dose reduction was used. FINDINGS: Persistent large intramedullary ochoa with 2 distal transverse fixating screws and larger fixating fem oral neck screw through subtrochanteric comminuted fracture of the right proximal femur. Alignment is stable. Linear lucency remains present. No new fractures are identified. No hip joint dislocation. M uscle bulk is maintained. A few scattered pelvic phleboliths are redemonstrated. IMPRESSION: As above. No significant change from most recent prior CT. Alignment is stable. [facility], , 08/17/2024 2:08 PM
== END | disposition home or self-care (01) ==
LOC: RADCTMAIN 12:18
PROVIDERS: ATTEND Orthopaedic Surgery
DX: S72 Fracture of femur (principal)

== ENCOUNTER → 2024-11-19 | Outpatient (CLI) | payer BC ==
[2024-11-19 15:49] LABS: ALT 11 U/L (8-44); AST 17 U/L (13-35); Albumin 4.1 g/dL (3.8-4.9); Albumin/Globulin Ratio 1.64 Ratio (1.60-3.17); Alkaline Phosphatase 65 U/L (41-126); Anion Gap 12.10 mmol/L (4.00-12.00); BUN/Creat Ratio 27.29 Ratio (12.00-20.00); Blood Urea Nitrogen 19.1 mg/dL (9.0-27.0); Calcium 9.2 mg/dL (8.7-10.3); Carbon Dioxide 20.9 mmol/L (21.6-31.8); Chloride 107 mmol/L (96-109); Cholesterol 166.00 mg/dL (0.00-200.00); Creatine Kinase 51 U/L (26-186); Globulin 2.5 g/dL (1.6-3.3); Glucose 87 mg/dL (70-110); HDL Cholesterol 77.90 mg/dL (40.00-60.00); Iron 37 UG/DL (50-170); LDH 191 U/L (120-246); LDL Cholesterol,Calculated 77.6 mg/dL (0.0-131.0); Magnesium 1.6 mg/dL (1.5-2.4); Potassium 4.2 mmol/L (3.5-5.5); Sodium 140 mmol/L (135-145); Total Iron Binding Capacity 392 UG/DL (228-460); Total Protein 6.6 g/dL (6.2-8.2); Triglycerides 52.40 mg/dL (0.00-149.00); VLDL Calculation 10.48 mg/dL (5.00-40.00); Vitamin B12 459.0 pg/mL (200.0-944.0)
[2024-11-19 16:16] LABS: Basophils # (A) 0.05 X 10*3/uL (0.00-0.10); Basophils % (A) 0.7 %; Eosinophils # (A) 0.05 X 10*3/uL (0.04-0.35); Eosinophils % (A) 0.7 %; HCT 36.8 % (37.2-46.3); HGB 10.9 g/dL (12.0-15.0); Immature Grans, Automated 0.70 %; Lymphocytes # (A) 0.97 X 10*3/uL (0.90-5.00); Lymphocytes % (A) 13.9 %; MCH 25.8 pg (27.0-32.0); MCHC 29.6 g/dL (32.0-37.0); MCV 87.0 FL (80.0-97.0); Monocytes # (A) 0.47 X 10*3/uL (0.20-1.00); Monocytes % (A) 6.7 %; NRBC Per 100 WBC 0 X 10*3/uL (0.00-0.01); Neutrophils # (A) 5.40 X 10*3/uL (1.80-7.70); Neutrophils % (A) 77.3 %; Platelet Count 358 X 10*3/uL (140-440); RBC 4.23 X 10*6/uL (4.10-5.20); RDW 15.8 % (11.5-14.5); WBC 6.99 X 10*3/uL (4.50-10.00)
== END | disposition home or self-care (01) ==
LOC: LABWHC1 07:15
PROVIDERS: ATTEND Internal Medicine
DX: E78.2 Mixed hyperlipidemia (principal); D63.8 Anemia in other chronic diseases classified elsewhere; M34.9 Systemic sclerosis, unspecified; M85.852 Other specified disorders of bone density and structure, left thigh; E83.42 Hypomagnesemia
CPT/HCPCS: 36415; 80053; 80061; 82306; 82525; 82550; 82607; 82746; 83010; 83036; 83540; 83550; 83615; 83735; 84443; 85025; 85045